=== PATIENT | female | born 1975 | race Two or more races ===

== ENCOUNTER 2016-05-19 18:23 | Inpatient (IN) | payer OTHER ==
[~2016-05-19] VITALS: Ht 172.7 cm; Wt 132.4 kg
[~2016-05-19 18:23] MED LIST: AMOX TR-K CLV1 EAC2 ORAL; CIPROFLOXACIN500 M2 ORAL; HYDROCODON-ACE1 EA13 ORAL
[2016-05-19] MEDS ORDERED: FUROSEMIDE20 M1 ORAL (19:13)
[2016-05-19] MEDS ORDERED: AVIANE1 EACH PO ×2 (19:13→22:56)
[2016-05-19] MEDS ORDERED: DOXYCYCLINE HYC20 M1 PO (19:13)
--- NOTE | 2016-05-19 19:50 | History & Physical ---
History and Physical History & Physicial General Date patient seen: May 19, 2016 Time patient seen: 19:47 Present Illness HPI 41 y/o female with hx of hidratenitis, presents with infected abscesses in her inguinal regions. She has had uncontrolled pain and came to the ER due to this. No fevers/chills, has been on multiple abx in the past doxy without significant improvement. She can exert herself 3x a week with >4 METS activity without any chest pain or dyspnea. No hx of CAD/CHF/DC/CVA/DM/PVD. Non smoker, denies etoh Allergies: Coded Allergies: MARCIN INHIBITORS (Unverified Allergy, Unknown, 12/29/15) Uncoded Allergies: MARCIN-INHIBITORS (Allergy, Unknown, 12/29/15) Patient History History Provided By: Patient Healthcare decision maker Resuscitation status Advanced Directive on File Past Medical/Surgical History Past Medical/Surgical History: (1) Microcytic anemia Family History Family History: Patient reports no known family medical history. Social History Social History: (1) No significant social history ROS Review of Systems Constitutional: Reports: no symptoms Eye: Reports: no symptoms ENT: Reports: no symptoms Respiratory: Reports: no symptoms Cardiovascular: Reports: no symptoms Gastrointestinal: Reports: no symptoms Genitourinary: Reports: pain Musculoskeletal: Reports: no symptoms Skin: Reports: lesions, rash Psychiatric: Reports: no symptoms Neurological: Reports: no symptoms Endocrine: Reports: no symptoms Hematologic/Lymphatic: Reports: no symptoms Physical Exam Physical Exam General Appearance: WD/WN, no apparent distress, alert Lines, tubes and drains: peripheral HEENT: normocephalic, atraumatic, anicteric, mucous membranes moist Neck: non-tender, normal alignment, supple, normal inspection Respiratory/Chest: chest wall non-tender, lungs clear, normal breath sounds, no respiratory distress, no accessory muscle use Cardiovascular/Chest: normal peripheral pulses, normal rate, regular rhythm, no gallop/murmur, no JVD Abdomen: normal bowel sounds, non tender, soft Extremities: normal range of motion, non-tender, normal inspection, no calf tenderness, normal capillary refill Skin Exam: normal pigmentation, warm/dry, no diaphoresis. Inguinal abscesses with ttp Neurologic: alert, oriented x 3, responsive, normal mood/affect Last 24 Hour Vital Signs Date Time Temp Pulse Resp B/P Pulse Ox O2 Delivery O2 Flow Rate FiO2 8/2/16 15:20 98.4 76 16 128/76 98 Room Air 12/29/15 14:06 98.6 82 18 131/70 98 Room Air Laboratory Tests Test 12/29/15 15:25 12/29/15 16:41 White Blood Count 7.7K/UL (4.8-10.8) Red Blood Count 4.41M/UL (4.20-5.40) Hemoglobin 9.7G/DL (12.0-16.0) L Hematocrit 33.5% (37.0-47.0) L Mean Corpuscular Volume 76FL (80-99) L Mean Corpuscular Hemoglobin 22.1PG (27.0-31.0) L Mean Corpuscular Hemoglobin Concent 29.1G/DL (32.0-36.0) L Red Cell Distribution Width 16.9% (11.6-14.8) H Platelet Count 490K/UL (150-450) H Mean Platelet Volume 5.3FL (6.5-10.1) L Neutrophils (%) (Auto) 70.6% (45.0-75.0) Lymphocytes (%) (Auto) 18.9% (20.0-45.0) L Monocytes (%) (Auto) 6.2% (1.0-10.0) Eosinophils (%) (Auto) 3.1% (0.0-3.0) H Basophils (%) (Auto) 1.3% (0.0-2.0) Prothrombin Time 10.2SEC (9.30-11.50) Prothromb Time International Ratio 1.0 (0.9-1.1) Activated Partial Thromboplast Time 30SEC (23-33) Sodium Level 142mEQ/L (135-145) Potassium Level 4.5mEQ/L (3.4-4.9) Chloride Level 104mEQ/L (98-107) Carbon Dioxide Level 27mEQ/L (20-30) Anion Gap 11 (5-15) Blood Urea Nitrogen 14mg/dL (7-23) Creatinine 0.8mg/dL (0.5-0.9) Glucose Level 110mg/dL (74-106) H Calcium Level 9.3mg/dL (8.6-10.2) Urine Color Yellow Urine Appearance Clear Urine pH 5 (4.5-8.0) Urine Specific [place] 1.025 (1.005-1.035) Urine Protein 1+ (NEGATIVE) H Urine Glucose (UA) Negative (NEGATIVE) Urine Ketones Negative (NEGATIVE) Urine Occult Blood 4+ (NEGATIVE) H Urine Nitrite Negative (NEGATIVE) Urine Bilirubin Negative (NEGATIVE) Urine Urobilinogen NormalMG/DL (0.0-1.0) Urine Leukocyte Esterase 1+ (NEGATIVE) H Urine RBC 10-15/HPF (0 - 2) H Urine WBC 2-4/HPF (0 - 2) Urine Squamous Epithelial Cells Few/LPF (NONE/OCC) Urine Bacteria Few/HPF (NONE) Height (Feet): 5 Height (Inches): 8 Weight (Pounds): 280 Medications Current Medications Medications (Trade) Dose Ordered Sig/Sonya Route PRN Reason Start Time Stop Time Status Last Admin Dose Admin Acetaminophen (Tylenol) 650 mg Q4H PRN ORAL Mild Pain (Pain Scale 1-3) 12/29/15 17:00 01/28/16 16:59 UNV Acetaminophen (Tylenol) 650 mg Q4H PRN ORAL fever 12/29/15 17:00 01/28/16 16:59 UNV Al Hydroxide/Mg Hydroxide (Mylanta II) 30 ml Q6H PRN ORAL dyspepsia 12/29/15 17:00 01/28/16 16:59 UNV Bisacodyl (Dulcolax) 10 mg HSPRN PRN RECTAL Constipation 12/29/15 17:00 01/28/16 16:59 UNV Dextrose (Dextrose 50%) STAT PRN IV Hypoglycemia 12/29/15 17:00 01/28/16 16:59 UNV Dextrose/Sodium Chloride (D5ns) 1,000 ml @ 50 mls/hr Q20H IV 12/30/15 00:00 01/29/16 00:00 UNV Diphenhydramine HCl (Benadryl) 25 mg Q6H PRN ORAL Itching/Pruritis 12/29/15 17:00 01/28/16 16:59 UNV Docusate Sodium (Colace) 100 mg EVERY 12 HOURS ORAL 12/29/15 21:00 01/28/16 20:59 UNV Lorazepam (Ativan 2mg/ml 1ml) 0.5 mg Q4H PRN IV For Anxiety 12/29/15 17:00 01/05/16 16:59 UNV Magnesium Hydroxide (Mom) 30 ml HSPRN PRN ORAL Constipation 12/29/15 17:00 01/28/16 16:59 UNV Morphine Sulfate (Morphine Sulfate) 2 mg Q4HR PRN IVP Moderate Pain (Pain Scale 4-6) 12/29/15 17:00 01/05/16 16:59 UNV Morphine Sulfate (Morphine Sulfate) 4 mg Q4HR PRN IVP Severe Pain (Pain Scale 7-10) 12/29/15 17:00 01/05/16 16:59 UNV Ondansetron HCl (Zofran) 4 mg Q6H PRN IVP Nausea & Vomiting 12/29/15 17:00 01/28/16 16:59 UNV Polyethylene Glycol (Miralax) 17 gm HSPRN PRN ORAL Constipation 12/29/15 17:00 01/28/16 16:59 UNV Temazepam (Restoril) 15 mg HSPRN PRN ORAL Insomnia 12/29/15 17:00 01/05/16 16:59 UNV Vancomycin HCl (Vanco rx to dose) 1 ea DAILY PRN MISC Per rx protocol 12/29/15 17:00 01/28/16 16:59 UNV Vancomycin HCl 1 gm/Dextrose 250 ml @ 167 mls/hr ONCE ONCE IVPB 12/29/15 16:45 12/29/15 18:14 12/29/15 17:15 Assessment/Plan Assessment/Plan Problem List: (1) Microcytic anemia Assessment & Plan: ctm; hg 9.4 on previous hospitalization Check iron panel Check CBC (2) Abscess Assessment & Plan: Start IV abx f/u blood cx Pain control Supp care Wound care c/s Surgery, Dr. Ghosh Should the pt need surgical I+D, she would be a low risk for an intermediate risk surgery, per ACC/AHA guidelines, no further cardiopulmonary testing would be needed and there do not appear to be any medical contraindications to proceeding with surgery Time spent on case: 70 minutes with 38 mins dedicated to care coordination and counseling Eloy Peguero M.D. May 19, 2016 19:50
[2016-05-19 20:20] LABS: EOSINOPHILS % (AUTO) 6.5 % (0.0-3.0); LYMPHOCYTES % (AUTO) 27.2 % (20.0-45.0); MEAN CORPUSCULAR HEMOGLOBIN 22.6 PG (27.0-31.0); MEAN CORPUSCULAR HGB CONC 28.9 G/DL (32.0-36.0); MEAN CORPUSCULAR VOLUME 78 FL (80-99); MEAN PLATELET VOLUME 6.6 FL (6.5-10.1); MONOCYTES % (AUTO) 6.9 % (1.0-10.0); NEUTROPHILS % (AUTO) 57.4 % (45.0-75.0); PLATELET COUNT 330 K/UL (150-450); RED BLOOD COUNT 4.91 M/UL (4.20-5.40); RED CELL DISTRIBUTION WIDTH 16.6 % (11.6-14.8); WHITE BLOOD COUNT 6.9 K/UL (4.8-10.8)
[2016-05-19 20:28] LABS: APPEARANCE,URINE SLIGHTLY CLOUDY; KETONES,URINE NEGATIVE (NEGATIVE); PROTEIN,URINE 1+ (NEGATIVE)
[2016-05-19 20:29] LABS: LEUKOCYTE ESTERASE ,URINE NEGATIVE (NEGATIVE); NITRITE,URINE NEGATIVE (NEGATIVE); UROBILINOGEN,URINE NORMAL MG/DL (0.0-1.0)
[2016-05-19 20:33] LABS: BACTERIA,URINE FEW /HPF; CALCIUM OXALATE CRYSTALS,UR FEW /LPF; SQUAMOUS EPITHELIAL CELL,UR MODERATE /LPF (NONE/OCC); WBC,URINE 0-2 /HPF (0 - 2)
[2016-05-19 20:44] LABS: ALANINE AMINOTRANSFERASE 20 U/L (3-33); ALBUMIN/GLOBULIN RATIO 0.7 (1.0-2.7); ANION GAP 14 (5-15); ASPARTATE AMINO TRANSFERASE 15 U/L (5-40); CALCIUM 9.6 mg/dL (8.6-10.2); CARBON DIOXIDE 26 mEQ/L (20-30); CHLORIDE 98 mEQ/L (98-107); CREATININE 0.9 mg/dL (0.5-0.9); GLOMERULAR FILTRATION RATE > 60 mL/min (>60); HEMOLYSIS 7; POTASSIUM 4.3 mEQ/L (3.4-4.9); SODIUM 138 mEQ/L (135-145); TOTAL PROTEIN 8.6 g/dL (6.6-8.7)
[2016-05-19 20:50] LABS: PROTHROMBIN TIME 9.8 SEC (9.30-11.50)
[2016-05-19 21:01] VITALS: BP 121/70
[2016-05-19] MEDS ORDERED: Zosyn 3.375gm inj ONE (21:06)
[2016-05-19] MEDS: D5 1/2NS 1,000 ML IV SCH (21:08)
--- NOTE | 2016-05-19 21:25 | Emergency Room Report ---
History of Present Illness General Chief Complaint: Skin Rash/Abscess Source: Patient Present Illness HPI 41-year-old female presents to ED for evaluation. Patient is here to have surgery for hidradenitis to her inguinal area. Patient has history of hidradenitis in the past in other areas with prior operations. Patient denies any pain. Denies any fevers or chills. No aggravating or relieving factors. Denies any other associated symptoms Allergies: Coded Allergies: Dust (Verified Allergy, Mild, 12/30/15) SHELLFISH DERIVED (Unverified Allergy, Mild, 12/30/15) STRAWBERRY (Verified Allergy, Mild, 12/30/15) MARCIN INHIBITORS (Unverified Allergy, Unknown, 12/29/15) Uncoded Allergies: muñoz (Allergy, Mild, 12/30/15) shellfish (Allergy, Mild, 12/30/15) Patient History Past Medical History: none Past Surgical History: none Pertinent Family History: none Social History: Denies: alcohol use, drug use, smoking Last Menstrual Period: Currently on her period Now: No : 1 Para: 1 Immunizations: UTD Reviewed Nursing Documentation: PMH: Agreed, PSxH: Agreed Nursing Documentation-PMH Past Medical History: No Stated History Hx Cardiac Problems: No - HS Review of Systems All Other Systems: negative except mentioned in HPI Physical Exam Vital Signs Date Time Temp Pulse Resp B/P Pulse Ox O2 Delivery O2 Flow Rate FiO2 05/19/16 19:01 98.1 74 16 125/73 99 Room Air Sp02 EP Interpretation: reviewed, normal General Appearance: no apparent distress, alert, GCS 15, non-toxic, obese Head: normocephalic Eyes: bilateral eye PERRL, bilateral eye normal inspection ENT: normal ENT inspection Neck: normal inspection Respiratory: chest non-tender, lungs clear, normal breath sounds, speaking full sentences Cardiovascular #1: regular rate, rhythm, no edema Gastrointestinal: normal bowel sounds, non tender, soft, non-distended, no guarding, no rebound Rectal: deferred Genitourinary: no CVA tenderness Musculoskeletal: normal inspection Neurologic: alert, oriented x3, responsive, motor strength/tone normal, sensory intact, speech normal Psychiatric: normal inspection Skin: other - hidradenitis inguinal area Lymphatic: no adenopathy Medical Decision Making Diagnostic Impression: Primary Impression: Hidradenitis ER Course Hospital Course 41-year-old female presents to ED for preop evaluation. Scheduled to have surgery hidradenitis tomorrow Clinical course Patient placed on stretcher. After initial history and physical I ordered labs , CXR, EKG labs reviewed - no leukocytosis, Hb/Hct stable, no electrolyte abnormalities. antibiotics given. Case discussed with Dr Isidro/Augie and he agreed to accept the patient to his service for further care and support Diagnosis - hidradenitis Patient admitted to floor in serious condition Labs Test 05/19/16 19:40 White Blood Count 6.9 K/UL (4.8-10.8) Red Blood Count 4.91 M/UL (4.20-5.40) Hemoglobin 11.1 G/DL (12.0-16.0) Hematocrit 38.3 % (37.0-47.0) Mean Corpuscular Volume 78 FL (80-99) Mean Corpuscular Hemoglobin 22.6 PG (27.0-31.0) Mean Corpuscular Hemoglobin Concent 28.9 G/DL (32.0-36.0) Red Cell Distribution Width 16.6 % (11.6-14.8) Platelet Count 330 K/UL (150-450) Mean Platelet Volume 6.6 FL (6.5-10.1) Neutrophils (%) (Auto) 57.4 % (45.0-75.0) Lymphocytes (%) (Auto) 27.2 % (20.0-45.0) Monocytes (%) (Auto) 6.9 % (1.0-10.0) Eosinophils (%) (Auto) 6.5 % (0.0-3.0) Basophils (%) (Auto) 2.0 % (0.0-2.0) Prothrombin Time 9.8 SEC (9.30-11.50) Prothromb Time International Ratio 1.0 (0.9-1.1) Activated Partial Thromboplast Time 29 SEC (23-33) Urine Color Yellow Urine Appearance Slightly cloudy Urine pH 5.0 (4.5-8.0) Urine Specific [place] 1.025 (1.005-1.035) Urine Protein 1+ (NEGATIVE) Urine Glucose (UA) Negative (NEGATIVE) Urine Ketones Negative (NEGATIVE) Urine Occult Blood 4+ (NEGATIVE) Urine Nitrite Negative (NEGATIVE) Urine Bilirubin Negative (NEGATIVE) Urine Urobilinogen Normal MG/DL (0.0-1.0) Urine Leukocyte Esterase Negative (NEGATIVE) Urine RBC 10-15 /HPF (0 - 2) Urine WBC 0-2 /HPF (0 - 2) Urine Squamous Epithelial Cells Moderate /LPF (NONE/OCC) Urine Calcium Oxalate Crystals Few /LPF (NONE) Urine Bacteria Few /HPF (NONE) Sodium Level 138 mEQ/L (135-145) Potassium Level 4.3 mEQ/L (3.4-4.9) Chloride Level 98 mEQ/L (98-107) Carbon Dioxide Level 26 mEQ/L (20-30) Anion Gap 14 (5-15) Blood Urea Nitrogen 15 mg/dL (7-23) Creatinine 0.9 mg/dL (0.5-0.9) Estimat Glomerular Filtration Rate > 60 mL/min (>60) Glucose Level 103 mg/dL (74-106) Calcium Level 9.6 mg/dL (8.6-10.2) Total Bilirubin < 0.2 mg/dL (0.0-1.2) Aspartate Amino Transf (AST/SGOT) 15 U/L (5-40) Alanine Aminotransferase (ALT/SGPT) 20 U/L (3-33) Alkaline Phosphatase 111 U/L (35-104) Total Protein 8.6 g/dL (6.6-8.7) Albumin 3.8 g/dL (3.5-5.2) Globulin 4.8 g/dL Albumin/Globulin Ratio 0.7 (1.0-2.7) EKG Diagnostic Results Rate: normal Rhythm: NSR ST Segments: no acute changes ASA given to the pt in ED: No Rhythm Strip Diag. Results EP Interpretation: yes Rhythm: NSR, no PVC's, no ectopy Chest X-Ray Diagnostic Results EP Interpretation: Yes Findings: no consolidation, no effusion, no pneumothorax, no acute cardiopulmonary disease Number of Views: 1 Last Vital Signs Date Time Temp Pulse Resp B/P Pulse Ox O2 Delivery O2 Flow Rate FiO2 05/19/16 21:01 73 16 121/70 99 Room Air 05/19/16 19:01 98.1 Status: improved Disposition: ADMITTED INPATIENT Condition: Serious Referrals: ONEIDA SHANKAR (PCP) GABRIELLE COFFMAN M.D. May 19, 2016 21:25
[2016-05-19] MEDS ORDERED: FUROSEMIDE40 MG ORAL (22:56)
[2016-05-19] MEDS ORDERED: AMOX TR-K CLV1 EAC1 ORAL (22:56)
[2016-05-19 23:33] VITALS: BP 118/73
[2016-05-20] VITALS (15 sets, daily range): BP systolic 95–142; BP diastolic 53–83
[2016-05-20] MEDS ORDERED: ceFAZolin 1gm/50ml Premix 50 ML IVPB SCH
[2016-05-20] MEDS: CEFAZOLIN IVP SCH ×4 (05:45→14:00)
[2016-05-20] MEDS: D5W IVP SCH ×4 (05:45→14:00)
[2016-05-20] MEDS ORDERED: Bacitracin 50000 Units Vial ONE (08:36)
[2016-05-20] MEDS ORDERED: Lidocaine 1% 10mg/ml/Epi 0.005mg/ml 30ml vial INJ ONE (08:36)
[2016-05-20] MEDS ORDERED: Sodium Bicarbonate 8.4% 50ml Inj IV ONE (08:45)
[2016-05-20] MEDS ORDERED: Lidocaine 1% Plain 30 ml INJ ONE (08:45)
[2016-05-20] MEDS ORDERED: Heparin 2000 units/Ns 1000ml INJ ONE (08:45)
[2016-05-20] MEDS ORDERED: Propofol 10mg/ml 20ml IV ONE (09:42)
[2016-05-20] MEDS: D5 1/2NS 1,000 ML IV SCH ×2 (09:59→22:09)
--- NOTE | 2016-05-20 10:17 | Pre-Procedure Note/Attestation ---
Pre-Procedure Note/Attestation Complete Prior to Procedure Planned Procedure: bilateral Procedure Narrative: Debridement of bilateral groin,thighs,lower abdomen, and vulva Attestation I attest that I discussed the nature of the procedure; its benefits; risks and complications; and alternatives (and the risks and benefits of such alternatives ), prior to the procedure, with the patient (or the patient's legal circulation sales representative). I attest that, if there was a reasonable possibility of needing a blood transfusion, the patient (or the patient's legal circulation sales representative) was given the [facility] standardized written summary, pursuant to the [place] Blood Safety Act ([place] Health and Safety Code # 1645, as amended). I attest that I re-evaluated the patient just prior to the surgery and that there has been no change in the patient's H&P, except as documented below: ONEIDA SHANKAR May 20, 2016 10:17
--- NOTE | 2016-05-20 10:18 | Operative Note - PDOC ---
Operative Note Operative Note Pre-op Diagnosis: Groin infection and vulvar infection Procedure: Debridement of wounds and flap elevation Post-op Diagnosis: same as pre-op Anesthesia: general Specimen: none Complications: none Condition: stable Estimated Blood Loss: minimal Drains: ONEIDA CATHERINE May 20, 2016 10:18
--- NOTE | 2016-05-20 10:20 | General Progress Note ---
Assessment/Plan Problem List: (1) Abscess ICD Codes: L02.91 - Cutaneous abscess, unspecified SNOMED: 230799719 (2) Inguinal abscess ICD Codes: L02.214 - Cutaneous abscess of groin SNOMED: 18746851 (3) Hidradenitis ICD Codes: L73.2 - Hidradenitis suppurativa SNOMED: 99039629 (4) Microcytic anemia ICD Codes: D50.9 - Iron deficiency anemia, unspecified SNOMED: 323564067 (5) Constipation ICD Codes: K59.00 - Constipation, unspecified SNOMED: 89100395 Status: progressing Assessment/Plan IV abx f/u blood cx Pain control Supp care Wound care c/s Surgery, Dr. Ghosh, pt to undergo Debridement of bilateral groin,thighs, lower abdomen, and vulva today Time spent on case: 45 minutes with 28 mins dedicated to care coordination and counseling Subjective Date patient seen: May 20, 2016 Time patient seen: 10:19 Allergies: Coded Allergies: Dust (Verified Allergy, Mild, 12/30/15) SHELLFISH DERIVED (Unverified Allergy, Mild, 12/30/15) STRAWBERRY (Verified Allergy, Mild, 12/30/15) MARCIN INHIBITORS (Unverified Allergy, Unknown, 12/29/15) Uncoded Allergies: muñoz (Allergy, Mild, 12/30/15) shellfish (Allergy, Mild, 12/30/15) Subjective no acute events o/n Objective Last 24 Hour Vital Signs Date Time Temp Pulse Resp B/P Pulse Ox O2 Delivery O2 Flow Rate FiO2 05/20/16 09:00 97.7 73 20 111/60 100 Room Air 05/20/16 04:00 98.2 73 21 125/67 100 Room Air 05/20/16 00:00 97.7 84 20 142/80 94 Room Air 05/19/16 23:35 98.3 76 12 118/73 100 Room Air 05/19/16 23:33 98.3 76 12 118/73 100 Room Air 05/19/16 21:01 73 16 121/70 99 Room Air 05/19/16 19:01 98.1 74 16 125/73 99 Room Air Intake and Output 05/19/16 05/20/16 19:00 07:00 Intake Total 675 ml Output Total 1 ml Balance 674 ml Intake Oral 0 ml IV Total 675 ml Output Urine Total 1 ml # Voids 1 # Bowel Movements 1 Laboratory Tests 05/19/16 19:40: White Blood Count 6.9, Red Blood Count 4.91, Hemoglobin 11.1L, Hematocrit 38.3, Mean Corpuscular Volume 78L, Mean Corpuscular Hemoglobin 22.6L, Mean Corpuscular Hemoglobin Concent 28.9L, Red Cell Distribution Width 16.6H, Platelet Count 330, Mean Platelet Volume 6.6, Neutrophils (%) (Auto) 57.4, Lymphocytes (%) (Auto) 27.2, Monocytes (%) (Auto) 6.9, Eosinophils (%) (Auto) 6.5H, Basophils (%) (Auto) 2.0, Prothrombin Time 9.8, Prothromb Time International Ratio 1.0, Activated Partial Thromboplast Time 29, Urine Color Yellow, Urine Appearance Slightly cloudy, Urine pH 5.0, Urine Specific [place] 1.025, Urine Protein 1+H, Urine Glucose (UA) Negative, Urine Ketones Negative, Urine Occult Blood 4+H, Urine Nitrite Negative, Urine Bilirubin Negative, Urine Urobilinogen Normal, Urine Leukocyte Esterase Negative, Urine RBC 10-15H, Urine WBC 0-2, Urine Squamous Epithelial Cells ModerateH, Urine Calcium Oxalate Crystals Few, Urine Bacteria Few, Sodium Level 138, Potassium Level 4.3, Chloride Level 98, Carbon Dioxide Level 26, Anion Gap 14, Blood Urea Nitrogen 15 , Creatinine 0.9, Estimat Glomerular Filtration Rate > 60, Glucose Level 103, Calcium Level 9.6, Total Bilirubin < 0.2, Aspartate Amino Transf (AST/SGOT) 15, Alanine Aminotransferase (ALT/SGPT) 20, Alkaline Phosphatase 111H, Total Protein 8.6, Albumin 3.8, Globulin 4.8, Albumin/Globulin Ratio 0.7L Height (Feet): 5 Height (Inches): 8.00 Weight (Pounds): 292 General Appearance: WD/WN, no apparent distress, morbidly obese, other EENT: PERRL/EOMI, normal ENT inspection Neck: non-tender, normal alignment Cardiovascular: normal peripheral pulses, normal rate Respiratory/Chest: chest wall non-tender, lungs clear Abdomen: normal bowel sounds, non tender Edema: no edema noted Arm (L), no edema noted Arm (R), no edema noted Leg (L), no edema noted Leg (R), no edema noted Pedal (L), no edema noted Pedal (R), no edema noted Generalized Neurologic: piper helper II-XII grossly normal, no motor/sensory deficits Skin: other - b/l inguinal abscesses with ttp Eloy Peguero M.D. May 20, 2016 10:20
[2016-05-20] MEDS ORDERED: Rate Change PCA 1 Each MISC PRN (10:30)
[2016-05-20] MEDS ORDERED: LR 1000ml ONE (11:02)
[2016-05-20] MEDS ORDERED: Sterile Water Irrig 1000ml IRRIG ONE (11:02)
[2016-05-20] MEDS ORDERED: Neostigmine 1mg/ml 10ml Inj ONE (11:02)
[2016-05-20] MEDS ORDERED: Zemuron 50mg/5ml Inj IV ONE (11:02)
[2016-05-20] MEDS ORDERED: Glycopyrrolate 0.2mg/ml 1ml Vial ONE (11:02)
[2016-05-20] MEDS ORDERED: NS Irrig 1000ml ONE (11:02)
[2016-05-20] MEDS ORDERED: Midazolam 2mg/2ml Inj ONE ×2 (11:02)
[2016-05-20] MEDS ORDERED: Ketorolac 30mg Inj ONE (11:02)
[2016-05-20] MEDS ORDERED: fentaNYL 250mcg/5ml ONE (11:02)
--- NOTE | 2016-05-20 11:47 | Diagnostic Imaging Report ---
Indications: Needs long-term IV access Technique: Ultrasound confirms patent compressible left basilic vein. Total sterile technique, including sterile probe cover and sterile gel, hat, mask,, sterile gown, large sterile drape, and preparation with 2% chlorhexidine utilized. Local anesthesia with 1% lidocaine. Under real-time ultrasound guidance, puncture basilic vein using 21-gauge needle, documented and archived, passage 0.018 guidewire under direct fluoroscopy, which was used to determine appropriate catheter length, exchange for 5 Spanish peel-away sheath. 5 Spanish Bard dual-lumen power PICC cut to 44 cm. It was inserted through the peel-away sheath. Peel-away sheath and guidewire removed. Catheter fixed to the skin. Both catheter ports aspirated and flushed. Patient tolerated procedure well, without immediate complication. Digital radiograph documents satisfactory catheter tip position, at the cavoatrial junction. Total fluoroscopy time 0.4 minutes. Total dose area product 15 dGycm2 Impression: Successful placement of left PICC under sonographic and fluoroscopic guidance, as described above.
--- NOTE | 2016-05-20 11:48 | Anethesia Preoperative Eval ---
Anesthesia Pre-op PMH/ROS General Date of Evaluation: May 20, 2016 Time of Evaluation: 10:50 Anesthesiologist: Naveen ASA Score: ASA 3 Mallampati Score Class I : Soft palate, uvula, fauces, pillars visible Class II: Soft palate, uvula, fauces visible Class III: Soft palate, base of uvula visible Class IV: Only hard plate visible Mallampati Classification: Class III Surgeon: Augie Diagnosis: Bilateral groin hydradenitis Surgical Procedure: Excision of bilateral groin hydradenitis Anesthesia History: none Family History: no anesthesia problems Allergies: Coded Allergies: Dust (Verified Allergy, Mild, 12/30/15) SHELLFISH DERIVED (Unverified Allergy, Mild, 12/30/15) STRAWBERRY (Verified Allergy, Mild, 12/30/15) MARCIN INHIBITORS (Unverified Allergy, Unknown, 12/29/15) Uncoded Allergies: muñoz (Allergy, Mild, 12/30/15) shellfish (Allergy, Mild, 12/30/15) Medications: see eMAR Past Medical History Cardiovascular: Reports: HTN, Denies: CAD, NH, arrhythmia, other, valve dz Pulmonary: Denies: COPD, OSMAR, asthma, other Gastrointestinal/Genitourinary: Reports: GERD Neurologic/Psychiatric: Reports: depression/anxiety, Denies: CVA, TIA, dementia, other Endocrine: Denies: DM, hypothyroidism, other, steroids HEENT: Denies: GULKANA (L), GULKANA (R), cataract (L), cataract (R), glaucoma, other Hematology/Immune: Reports: anemia, Denies: DVT, bleeding disorder, other Musculoskeletal/Integumentary: Reports: other - Recurrent hydradenitis Other: obesity PMH Narrative: As above PSxH Narrative: Multiple Sx for hydradenitis treatment Anesthesia Pre-op Phys. Exam Physician Exam Last Vital Signs Date Time Temp Pulse Resp B/P Pulse Ox O2 Delivery O2 Flow Rate FiO2 05/20/16 09:00 97.7 73 20 111/60 100 Room Air Constitutional: NAD Neurologic: CN 2-12 intact Cardiovascular: RRR, no M/R/G Respiratory: CTA Gastrointestinal: other - obesity Airway Exam Mallampati Score: Class III MO: full Neck: flexible Teeth: missing Dentures: no lower, no upper Anesthesia Pre-op A/P Labs Hematology Test 05/19/16 19:40 White Blood Count 6.9 K/UL (4.8-10.8) Red Blood Count 4.91 M/UL (4.20-5.40) Hemoglobin 11.1 G/DL (12.0-16.0) L Hematocrit 38.3 % (37.0-47.0) Mean Corpuscular Volume 78 FL (80-99) L Mean Corpuscular Hemoglobin 22.6 PG (27.0-31.0) L Mean Corpuscular Hemoglobin Concent 28.9 G/DL (32.0-36.0) L Red Cell Distribution Width 16.6 % (11.6-14.8) H Platelet Count 330 K/UL (150-450) Mean Platelet Volume 6.6 FL (6.5-10.1) Neutrophils (%) (Auto) 57.4 % (45.0-75.0) Lymphocytes (%) (Auto) 27.2 % (20.0-45.0) Monocytes (%) (Auto) 6.9 % (1.0-10.0) Eosinophils (%) (Auto) 6.5 % (0.0-3.0) H Basophils (%) (Auto) 2.0 % (0.0-2.0) Coagulation Test 05/19/16 19:40 Prothrombin Time 9.8 SEC (9.30-11.50) Prothromb Time International Ratio 1.0 (0.9-1.1) Activated Partial Thromboplast Time 29 SEC (23-33) Chemistry Test 05/19/16 19:40 Sodium Level 138 mEQ/L (135-145) Potassium Level 4.3 mEQ/L (3.4-4.9) Chloride Level 98 mEQ/L (98-107) Carbon Dioxide Level 26 mEQ/L (20-30) Anion Gap 14 (5-15) Blood Urea Nitrogen 15 mg/dL (7-23) Creatinine 0.9 mg/dL (0.5-0.9) Estimat Glomerular Filtration Rate > 60 mL/min (>60) Glucose Level 103 mg/dL (74-106) Calcium Level 9.6 mg/dL (8.6-10.2) Total Bilirubin < 0.2 mg/dL (0.0-1.2) Aspartate Amino Transf (AST/SGOT) 15 U/L (5-40) Alanine Aminotransferase (ALT/SGPT) 20 U/L (3-33) Alkaline Phosphatase 111 U/L (35-104) H Total Protein 8.6 g/dL (6.6-8.7) Albumin 3.8 g/dL (3.5-5.2) Globulin 4.8 g/dL Albumin/Globulin Ratio 0.7 (1.0-2.7) L Studies Pre-op Studies: EKG - SR Risk Assessment & Plan Assessment: ASA 3 Plan: GA with ETT Status Change Before Surgery: No Pre-Antibiotics Drug: Ancef 1 gr. Given Within 1 Hr of Incision: Yes Time Given: 11:28 ALVIN DAS M.D. May 20, 2016 11:48
[2016-05-20] MEDS ORDERED: LR 1000ml 1,000 ML IVLG SCH (11:49)
[2016-05-20] MEDS ORDERED: fentaNYL 100 mcg/2 mL IV PRN (12:00)
[2016-05-20] MEDS ORDERED: Hydromorphone 0.5mg/0.5ml inj IVP PRN (12:00)
[2016-05-20] MEDS ORDERED: Midazolam 2mg/2ml Inj IVP PRN (12:00)
[2016-05-20] MEDS ORDERED: Metoclopramide 10mg/2ml Inj IVP PRN (12:00)
[2016-05-20] MEDS ORDERED: Meperidine 25mg/ml Inj IV PRN (12:00)
[2016-05-20] MEDS ORDERED: Ketorolac 30mg Inj IV PRN (12:00)
[2016-05-20] MEDS ORDERED: DiphenhydrAMINE 50mg/ml Inj IVP PRN (12:00)
[2016-05-20] MEDS ORDERED: Bacitracin Oint 15gm Tube TOPIC ONE (12:30)
--- NOTE | 2016-05-20 13:03 | Immediate Post-Op Evaluation ---
Immediate Post-Op Evalulation Immediate Post-Op Evalulation Procedure: Excision of bilateral groin hydradenitis Date of Evaluation: May 20, 2016 Time of Evaluation: 13:01 IV Fluids: 800 Blood Products: none Estimated Blood Loss: 50 Urinary Output: 300 Blood Pressure Systolic: 132 Blood Pressure Diastolic: 75 Pulse Rate: 68 Respiratory Rate: 20 O2 Sat by Pulse Oximetry: 99 Temperature (Fahrenheit): 97.2 Pain Score (1-10): 1 Nausea: No Vomiting: No Complications none Patient Status: reacts, patent, extubated Hydration Status: adequate ALVIN DAS M.D. May 20, 2016 13:03
[2016-05-20] MEDS: PCA HYDROmorphone 1mg/ml 30 ML IV PRN (13:49)
[2016-05-20] MEDS: PCA shift volume MISC SCH ×2 (15:13→23:00)
--- NOTE | 2016-05-20 15:20 | 48 Hour Post Anesthesia Eval ---
Post Anesthesia Evaluation Procedure: Excision of bilateral groin hydradenitis Date of Evaluation: May 20, 2016 Time of Evaluation: 13:18 Blood Pressure Systolic: 120 0: 64 Pulse Rate: 60 Respiratory Rate: 16 Temperature (Fahrenheit): 98 O2 Sat by Pulse Oximetry: 100 Airway: patent Nausea: No Vomiting: No Pain Intensity: 3 Hydration Status: adequate Cardiopulmonary Status: Stable Mental Status/LOC: patient returned to baseline Follow-up Care/Observations: 0 Post-Anesthesia Complications: 0 Follow-up care needed: N/A Aristeo Reed MD May 20, 2016 15:20
--- NOTE | 2016-05-20 15:59 | Cardiology Report ---
APPROVED REPORT EKG Measurement Heart [id number] Normal sinus rhythm Normal ECG
--- NOTE | 2016-05-20 17:08 | Consultation ---
DATE OF CONSULTATION: 05/20/2016 ADMITTING PHYSICIAN: Rogelio Nicole M.D. HISTORY OF PRESENT ILLNESS: This is a 41-year-old patient admitted to the emergency room last night with infected abscesses in her inguinal regions who has had uncontrolled pain and presented to the emergency room for this. She has had previous surgery by me for excision of infected masses on her lower extremities and she presents now with new areas that are causing her significant pain and discomfort. She was started on IV antibiotics and I am seeing her today for evaluation for surgical debridement and reconstruction. PAST MEDICAL HISTORY: Significant for hidradenitis suppurativa. PAST SURGICAL HISTORY: Significant for previous excision and reconstruction of these infected abscesses in her lower extremity and trunk. MEDICATIONS: Include antibiotics. ALLERGIES: MARCIN inhibitors and shellfish. PHYSICAL EXAMINATION: GENERAL: The patient is alert, alert oriented x3. HEART: Regular rate and rhythm. ABDOMEN: Soft, nontender, and nondistended. Lower abdomen reveals an infected abscess just over the mons as well as multiple areas of abscesses in the upper thigh and verrucous type lesions along both vulvae. ASSESSMENT AND PLAN: This is a 41-year-old female with multiple perineal and inguinal abscesses. She will require debridement and staged reconstruction of these areas. Given the fact that they are infected, this will not be one stage operation and will require first stage of excision and elevation of the reconstructive flaps with delayed closure of these wounds in three to five days. Jacob Ghosh M.D. DR: Tevin JOB#: [id number] CC: MORENA
--- NOTE | 2016-05-20 20:28 | Operative Note - Dictated ---
DATE OF OPERATION: 05/20/2016 PREOPERATIVE DIAGNOSES: 1. Bilateral upper thigh infected masses. 2. Infected mons mass. 3. Infected bilateral vulvar masses. POSTOPERATIVE DIAGNOSES: 1. Bilateral upper thigh infected masses. 2. Infected mons mass. 3. Infected bilateral vulvar masses. PROCEDURE: 1. Radical excision of left thigh mass. 2. Radical excision of right thigh mass. 3. Radical excision of mons mass. 4. Radical excision of vulvar mass. 5. Elevation of a superior fasciocutaneous thigh flap for closure of left thigh wound. 6. Elevation of an inferior fasciocutaneous thigh flap for closure of left thigh wound. 7. Elevation of a superior fasciocutaneous thigh flap for closure of right thigh wound. 8. Elevation of an inferior fasciocutaneous thigh flap for closure of right thigh wound. SURGEON: Jacob Ghosh M.D. BLOW OFF WORKER: Minda Alonzo M.D. ANESTHESIA: General. COMPLICATIONS: None. DRAINS: None. SPECIMEN: Included a total of six different specimens, one from each thigh, one from the mass, and several from the vulvar region. DISPOSITION: Stable to the recovery room. INDICATIONS FOR SURGERY: This is a 41-year-old female who presented to the emergency room with infected masses in the perineal and groin and thigh regions. She was started on IV antibiotics and upon evaluation by me, I felt that she was an appropriate candidate for radical excision of these infected areas with stage reconstruction. Given the fact these were infected tissues, I felt that it was not appropriate to perform immediate reconstruction at this time, but she would require stage approach for completion of her reconstruction. She understood the risks and benefits of surgery and agreed to proceed. DETAILS OF THE OPERATION: The patient was brought to the operating room and laid in the lithotomy position on the operating room table. Her lower abdomen, perineum, and bilateral upper thigh regions were prepped and draped in the sterile and usual fashion. We first began by delineating the areas of the infected masses in the surgical field by performing elliptical type of incisional designs around the bilateral thigh masses. In addition, an elliptical type design was also designed around the infected mons mass as well. Once this was done, we first addressed the left thigh mass by using a #10 blade to perform the skin incision and it was radically excised using electrocautery all the way down to the level of the subcutaneous fat. We then did the same approach to the contralateral right thigh mass, which was approached by using a #10 blade to make a skin incision and dissection was carried down using electrocautery all the way down to the subcutaneous fat. Once this was done, it was noted that the wound would not amenable to primary closure. As such, apposing flaps had to be elevated on both sides to allow for a tension-free repair. This was first done on the right side where a superior fasciocutaneous flap based off of branches of the deep inferior epigastric artery was elevated at the fasciocutaneous level with undermining performed at the fascia level and proximal distal incision was performed to fully mobilize the flap. A corresponding inferior fasciocutaneous thigh flap was elevated based off of perforators of the superficial femoral artery with undermining performed at the fasciocutaneous level with proximal and distal incisions also made to fully mobilize the flap. We then turned our attention and performed the exact same flap elevation on the contralateral left thigh where a superior fasciocutaneous flap based off of the deep inferior epigastric artery was elevated with proximal and distal incisions made to fully mobilize the flap and a corresponding inferior medial thigh flap based off of perforators of the superficial femoral artery was elevated at the fasciocutaneous level with undermining and proximal and distal incisions made to fully allow for advancement of the flap. At this time, we then turned our attention to the mons infected mass, which was excised at the skin level using a #10 blade to make a skin incision and then dissection was carried down all the way down to the level of the fascia to radically excise the mass. For this particular wound, we then irrigated this wound and the other thigh wound and performed hemostasis and they were packed temporarily. We then turned our attention to the vulvar tissue. The patient had growths along the right and left vulva. These were all delineated using a marking pen and once this was done, a #10 blade was used to first excise the right vulvar tissue and in a similar fashion the left vulvar tissue was also excised all the way down to the healthy wound bed. Once this was done, the wounds were then copiously irrigated with pulse lavage and hemostasis was achieved. At the end, we partially closed the thigh wounds and the vulvar wounds with temporary dalton. The patient we brought back to the operating room in three to five days following intravenous antibiotics and with dressing changes to perform definitive flap inset and closure of the open wounds. The patient tolerated the procedure well and there was no complications. Jacob Ghosh M.D. DR: YUMIKO JOB#: [id number] CC:
[2016-05-20] MEDS ORDERED: Heparin 5000 units/ml inj SUBQ SCH (21:00)
[2016-05-20] MEDS ORDERED: Zolpidem 5mg tab ORAL PRN (21:00)
[2016-05-21 00:41] VITALS: BP 100/55
[2016-05-21 04:00] VITALS: BP 111/68
[2016-05-21] MEDS: PCA shift volume MISC SCH ×3 (07:22→23:10)
[2016-05-21 08:00] VITALS: BP 132/64
[2016-05-21] MEDS: Diphenydramine inj IV PRN ×2 (08:06→14:29)
--- NOTE | 2016-05-21 09:13 | General Progress Note ---
Progress Note Progress Note Pt seen and examined. POD# 1 and doing well. Pain is well controlled. Dressings intact. Will change dressings in AM and continue IV abx and pain meds. ONEIDA Carter MD May 21, 2016 09:13
--- NOTE | 2016-05-21 10:24 | Diagnostic Imaging Report ---
Indication: Cough Technique: One view of the chest Comparison: 01/23/2016 Findings: Previously demonstrated PICC is no longer evident. Patient is rotated to the right. The lungs and pleural spaces are clear Impression: No acute process
--- NOTE | 2016-05-21 11:11 | General Progress Note ---
Assessment/Plan Problem List: (1) Abscess ICD Codes: L02.91 - Cutaneous abscess, unspecified SNOMED: 363861734 (2) Inguinal abscess ICD Codes: L02.214 - Cutaneous abscess of groin SNOMED: 77975166 (3) Hidradenitis ICD Codes: L73.2 - Hidradenitis suppurativa SNOMED: 21655724 (4) Microcytic anemia ICD Codes: D50.9 - Iron deficiency anemia, unspecified SNOMED: 882418859 (5) Constipation ICD Codes: K59.00 - Constipation, unspecified SNOMED: 99591586 Assessment/Plan IV abx f/u blood cx Pain control Supp care Wound care s/p Debridement of bilateral groin,thighs,lower abdomen, and vulva POD 1 Time spent on case: 45 minutes with 28 mins dedicated to care coordination and counseling Subjective Date patient seen: May 21, 2016 Time patient seen: 11:09 Allergies: Coded Allergies: Dust (Verified Allergy, Mild, 12/30/15) SHELLFISH DERIVED (Unverified Allergy, Mild, 12/30/15) STRAWBERRY (Verified Allergy, Mild, 12/30/15) MARCIN INHIBITORS (Unverified Allergy, Unknown, 12/29/15) Uncoded Allergies: muñoz (Allergy, Mild, 12/30/15) shellfish (Allergy, Mild, 12/30/15) Subjective no acute events o/n Objective Last 24 Hour Vital Signs Date Time Temp Pulse Resp B/P Pulse Ox O2 Delivery O2 Flow Rate FiO2 05/21/16 08:00 97.3 77 18 132/64 97 Room Air 05/21/16 08:00 18 05/21/16 04:00 99.5 82 19 111/68 95 Room Air 05/21/16 04:00 16 05/21/16 00:41 98.2 75 20 100/55 90 Room Air 05/20/16 23:39 16 05/20/16 20:00 98.1 72 20 95/57 97 Nasal Cannula 3.0 05/20/16 19:39 16 05/20/16 15:39 16 05/20/16 15:30 97.3 60 20 109/53 98 Nasal Cannula 3.0 05/20/16 15:20 16 05/20/16 15:20 60 16 100 05/20/16 15:09 16 05/20/16 14:39 16 05/20/16 14:30 97.2 59 20 106/66 100 Nasal Cannula 3.0 05/20/16 14:24 16 05/20/16 14:19 99.4 05/20/16 14:15 98.0 60 18 122/64 100 Nasal Cannula 3.0 05/20/16 14:09 16 05/20/16 14:00 58 16 120/66 100 Nasal Cannula 3.0 05/20/16 13:54 19 05/20/16 13:52 99.4 05/20/16 13:49 19 05/20/16 13:45 56 16 118/64 100 Nasal Cannula 3.0 05/20/16 13:30 60 19 132/75 100 Nasal Cannula 3.0 05/20/16 13:20 60 19 140/78 100 Nasal Cannula 3.0 05/20/16 13:10 64 18 135/83 100 Simple Mask 6.0 05/20/16 13:03 60 16 141/76 100 Simple Mask 6.0 05/20/16 13:03 68 20 99 05/20/16 12:58 65 15 134/72 100 Simple Mask 6.0 05/20/16 12:53 97.0 73 18 137/79 100 Simple Mask 6.0 Intake and Output 05/20/16 05/21/16 19:00 07:00 Intake Total 1935 ml 1000 ml Output Total 675 ml 345 ml Balance 1260 ml 655 ml Intake Oral 360 ml IV Total 1575 ml 1000 ml Output Urine Total 625 ml 345 ml Estimated Blood Loss 50 ml # Bowel Movements 1 Height (Feet): 5 Height (Inches): 8.00 Weight (Pounds): 292 General Appearance: WD/WN, no apparent distress EENT: PERRL/EOMI, normal ENT inspection Neck: non-tender, normal alignment Cardiovascular: normal peripheral pulses, normal rate Respiratory/Chest: chest wall non-tender, lungs clear Abdomen: normal bowel sounds, non tender Extremities: normal range of motion Edema: no edema noted Arm (L), no edema noted Arm (R), no edema noted Leg (L), no edema noted Leg (R), no edema noted Pedal (L), no edema noted Pedal (R), no edema noted 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 May 21, 2016 11:11
[2016-05-21] MEDS ORDERED: Milk of Magnesia 30ml Ud ORAL PRN (11:30)
[2016-05-21] MEDS: D5 1/2NS 1,000 ML IV SCH (11:32)
[2016-05-21 12:00] VITALS: BP 129/71
[2016-05-21] MEDS: PCA HYDROmorphone 1mg/ml 30 ML IV PRN (14:28)
[2016-05-21 16:00] VITALS: BP 128/79
[2016-05-21 20:00] VITALS: BP 115/73
[2016-05-21] MEDS: Heparin 5000 units/ml inj SUBQ SCH (20:30)
[2016-05-21] MEDS: Acetaminophen 500mg (ES) tab ORAL PRN (20:36)
[2016-05-22] VITALS (7 sets, daily range): BP systolic 110–127; BP diastolic 65–73
[2016-05-22] MEDS: D5 1/2NS 1,000 ML IV SCH ×3 (02:27→16:05)
[2016-05-22] MEDS: PCA shift volume MISC SCH ×3 (07:26→23:15)
[2016-05-22] MEDS: Heparin 5000 units/ml inj SUBQ SCH ×2 (08:56→20:19)
[2016-05-22] MEDS: Diphenydramine inj IV PRN (09:05)
[2016-05-22] MEDS ORDERED: D5 1/2NS 1000ml IV ONE (09:55)
--- NOTE | 2016-05-22 11:33 | General Progress Note ---
Assessment/Plan Problem List: (1) Abscess ICD Codes: L02.91 - Cutaneous abscess, unspecified SNOMED: 618135567 (2) Inguinal abscess ICD Codes: L02.214 - Cutaneous abscess of groin SNOMED: 02654415 (3) Hidradenitis ICD Codes: L73.2 - Hidradenitis suppurativa SNOMED: 69615680 (4) Microcytic anemia ICD Codes: D50.9 - Iron deficiency anemia, unspecified SNOMED: 782290237 (5) Constipation ICD Codes: K59.00 - Constipation, unspecified SNOMED: 22902228 (6) Headache ICD Codes: R51 - Headache SNOMED: 80606526 Assessment/Plan IV abx f/u blood cx Pain control H and H stable Supp care Wound care s/p Debridement of bilateral groin,thighs,lower abdomen, and vulva POD 2 bowel regimen tylenol for JEROME Time spent on case: 45 minutes with 28 mins dedicated to care coordination and counseling Subjective Date patient seen: May 22, 2016 Time patient seen: 11:31 Allergies: Coded Allergies: Dust (Verified Allergy, Mild, 12/30/15) SHELLFISH DERIVED (Unverified Allergy, Mild, 12/30/15) STRAWBERRY (Verified Allergy, Mild, 12/30/15) MARCIN INHIBITORS (Unverified Allergy, Unknown, 12/29/15) Uncoded Allergies: muñoz (Allergy, Mild, 12/30/15) shellfish (Allergy, Mild, 12/30/15) Subjective no acute events o/n Objective Last 24 Hour Vital Signs Date Time Temp Pulse Resp B/P Pulse Ox O2 Delivery O2 Flow Rate FiO2 05/22/16 08:00 97.0 77 21 110/73 98 Room Air 05/22/16 04:00 18 05/22/16 04:00 97.5 69 18 113/69 97 Room Air 05/22/16 00:00 18 05/22/16 00:00 98.1 81 18 123/71 99 Room Air 05/21/16 20:00 98.2 82 20 115/73 97 Room Air 05/21/16 20:00 18 05/21/16 16:00 98.4 83 20 128/79 92 Room Air 05/21/16 14:58 97.5 05/21/16 12:00 18 12/24/16 12:00 97.5 80 18 129/71 99 Room Air Intake and Output 05/21/16 05/22/16 19:00 07:00 Intake Total 1300 ml 1365 ml Output Total 450 ml 850 ml Balance 850 ml 515 ml Intake Oral 650 ml 540 ml IV Total 650 ml 825 ml Output Urine Total 450 ml 850 ml Height (Feet): 5 Height (Inches): 8.00 Weight (Pounds): 292 Objective General Appearance: WD/WN, no apparent distress EENT: PERRL/EOMI, normal ENT inspection Neck: non-tender, normal alignment Cardiovascular: normal peripheral pulses, normal rate Respiratory/Chest: chest wall non-tender, lungs clear Abdomen: normal bowel sounds, non tender Extremities: normal range of motion Edema: no edema noted Arm (L), no edema noted Arm (R), no edema noted Leg (L), no edema noted Leg (R), no edema noted Pedal (L), no edema noted Pedal (R), no edema noted 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 May 22, 2016 11:33
[2016-05-22] MEDS: Acetaminophen 500mg (ES) tab ORAL PRN (12:39)
[2016-05-22] MEDS ORDERED: DiphenhydrAMINE 50mg/ml Inj IVP PRN ×2 (15:00→16:00)
[2016-05-22] MEDS ORDERED: Rate Change PCA 1 Each MISC PRN (15:00)
[2016-05-22] MEDS ORDERED: Naloxone 0.4mg/ml Inj IVP PRN (15:00)
[2016-05-22] MEDS: PCA HYDROmorphone 1mg/ml 30 ML IV PRN (15:06)
[2016-05-23 04:00] VITALS: BP 134/87
[2016-05-23] MEDS: D5 1/2NS 1,000 ML IV SCH ×2 (04:04→18:47)
[2016-05-23] MEDS: PCA shift volume MISC SCH ×3 (07:20→23:00)
[2016-05-23 08:00] VITALS: BP 128/75
[2016-05-23] MEDS: Heparin 5000 units/ml inj SUBQ SCH ×2 (09:28→20:37)
--- NOTE | 2016-05-23 09:50 | General Progress Note ---
Progress Note Progress Note Pt seen and examined. POD# 3 and doing well. Wounds all healthy with no evidence of infection. Plan to OR on mon for definitive closure of wounds. Consent and NPO after MN on . ONEIDA Carter MD May 23, 2016 09:50
--- NOTE | 2016-05-23 11:19 | General Progress Note ---
Assessment/Plan Problem List: (1) Abscess ICD Codes: L02.91 - Cutaneous abscess, unspecified SNOMED: 889708291 (2) Inguinal abscess ICD Codes: L02.214 - Cutaneous abscess of groin SNOMED: 80052891 (3) Hidradenitis ICD Codes: L73.2 - Hidradenitis suppurativa SNOMED: 07242310 (4) Microcytic anemia ICD Codes: D50.9 - Iron deficiency anemia, unspecified SNOMED: 136881373 (5) Constipation ICD Codes: K59.00 - Constipation, unspecified SNOMED: 32005023 (6) Headache ICD Codes: R51 - Headache SNOMED: 30506203 Assessment/Plan IV abx f/u blood cx Pain control H and H stable Supp care Wound care s/p Debridement of bilateral groin,thighs,lower abdomen, and vulva POD 3 bowel regimen tylenol for JEROME Time spent on case: 45 minutes with 28 mins dedicated to care coordination and counseling Subjective Date patient seen: May 23, 2016 Time patient seen: 11:18 Allergies: Coded Allergies: Dust (Verified Allergy, Mild, 12/30/15) SHELLFISH DERIVED (Unverified Allergy, Mild, 12/30/15) STRAWBERRY (Verified Allergy, Mild, 12/30/15) MARCIN INHIBITORS (Unverified Allergy, Unknown, 12/29/15) Uncoded Allergies: muñoz (Allergy, Mild, 12/30/15) shellfish (Allergy, Mild, 12/30/15) Subjective no acute events o/n Objective Last 24 Hour Vital Signs Date Time Temp Pulse Resp B/P Pulse Ox O2 Delivery O2 Flow Rate FiO2 05/23/16 08:00 98.2 93 20 128/75 98 Room Air 05/23/16 08:00 18 05/23/16 04:00 98.4 94 18 134/87 98 Room Air 05/23/16 04:00 18 05/23/16 00:00 18 05/22/16 23:47 98.6 79 18 119/69 100 Room Air 05/22/16 20:00 20 05/22/16 20:00 98.1 87 17 118/65 96 Room Air 05/22/16 15:57 20 05/22/16 15:49 98.2 87 20 121/72 98 Room Air 05/22/16 13:38 97.0 05/22/16 12:00 18 05/22/16 12:00 98.1 82 23 127/69 99 Room Air Intake and Output 05/22/16 05/23/16 19:00 07:00 Intake Total 1360 ml 1615 ml Output Total 500 ml 3200 ml Balance 860 ml -1585 ml Intake Oral 360 ml 740 ml IV Total 1000 ml 875 ml Output Urine Total 500 ml 3200 ml # Bowel Movements 1 Height (Feet): 5 Height (Inches): 8.00 Weight (Pounds): 292 General Appearance: WD/WN, no apparent distress EENT: PERRL/EOMI, normal ENT inspection Neck: non-tender, normal alignment Cardiovascular: normal peripheral pulses, normal rate Respiratory/Chest: chest wall non-tender, lungs clear Abdomen: normal bowel sounds, non tender Extremities: normal range of motion, non-tender Edema: no edema noted Arm (L), no edema noted Arm (R), no edema noted Leg (L), no edema noted Leg (R), no edema noted Pedal (L), no edema noted Pedal (R), no edema noted 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, no motor/sensory deficits Skin: other - b/l inguinal wound c/d; packed Objective General Appearance: WD/WN, no apparent distress EENT: PERRL/EOMI, normal ENT inspection Neck: non-tender, normal alignment Cardiovascular: normal peripheral pulses, normal rate Respiratory/Chest: chest wall non-tender, lungs clear Abdomen: normal bowel sounds, non tender Extremities: normal range of motion Edema: no edema noted Arm (L), no edema noted Arm (R), no edema noted Leg (L), no edema noted Leg (R), no edema noted Pedal (L), no edema noted Pedal (R), no edema noted 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 May 23, 2016 11:19
[2016-05-23] MEDS: Milk of Magnesia 30ml Ud ORAL SCH (11:47)
[2016-05-23 12:00] VITALS: BP 124/82
[2016-05-23] MEDS: PCA HYDROmorphone 1mg/ml 30 ML IV PRN (14:51)
[2016-05-23 16:09] VITALS: BP 143/77
[2016-05-23 20:00] VITALS: BP 116/65
[2016-05-24] VITALS: BP 128/74
[2016-05-24 04:00] VITALS: BP 120/70
[2016-05-24] MEDS: D5 1/2NS 1,000 ML IV SCH ×2 (05:16→20:04)
[2016-05-24] MEDS: PCA shift volume MISC SCH ×3 (07:13→23:00)
[2016-05-24 08:00] VITALS: BP 135/78
[2016-05-24] MEDS: Milk of Magnesia 30ml Ud ORAL SCH (08:55)
[2016-05-24] MEDS: Heparin 5000 units/ml inj SUBQ SCH ×2 (09:00→20:07)
[2016-05-24] MEDS: Ocean Nasal Spray 45ml NASAL SCH ×2 (09:33→20:07)
[2016-05-24 12:00] VITALS: BP 139/63
[2016-05-24] MEDS ORDERED: Rate Change PCA 1 Each MISC PRN (14:00)
[2016-05-24] MEDS ORDERED: Naloxone 0.4mg/ml Inj IVP PRN (14:00)
[2016-05-24] MEDS ORDERED: DiphenhydrAMINE 50mg/ml Inj IVP PRN (14:00)
[2016-05-24] MEDS ORDERED: Lactulose 20gm/30ml UDC ORAL ONE (14:15)
[2016-05-24] MEDS ORDERED: PCA HYDROmorphone 1mg/ml 30 ML IV PRN (15:00)
[2016-05-24 15:46] VITALS: BP 137/75
--- NOTE | 2016-05-24 18:27 | General Progress Note ---
Assessment/Plan Problem List: (1) Abscess ICD Codes: L02.91 - Cutaneous abscess, unspecified SNOMED: 026030038 (2) Inguinal abscess ICD Codes: L02.214 - Cutaneous abscess of groin SNOMED: 45507647 (3) Hidradenitis ICD Codes: L73.2 - Hidradenitis suppurativa SNOMED: 37012268 (4) Microcytic anemia ICD Codes: D50.9 - Iron deficiency anemia, unspecified SNOMED: 558177074 (5) Constipation ICD Codes: K59.00 - Constipation, unspecified SNOMED: 76468069 (6) Headache ICD Codes: R51 - Headache SNOMED: 55265741 Assessment/Plan IV abx f/u blood cx Pain control H and H stable Supp care Wound care s/p Debridement of bilateral groin,thighs,lower abdomen, and vulva POD 4 scheduled for take down of dressings tomorrow bowel regimen tylenol for JEROME Time spent on case: 45 minutes with 28 mins dedicated to care coordination and counseling Subjective Date patient seen: May 24, 2016 Time patient seen: 18:26 Allergies: Coded Allergies: Dust (Verified Allergy, Mild, 12/30/15) SHELLFISH DERIVED (Unverified Allergy, Mild, 12/30/15) STRAWBERRY (Verified Allergy, Mild, 12/30/15) MARCIN INHIBITORS (Unverified Allergy, Unknown, 12/29/15) Uncoded Allergies: muñoz (Allergy, Mild, 12/30/15) shellfish (Allergy, Mild, 12/30/15) Subjective no acute events o/n Objective Last 24 Hour Vital Signs Date Time Temp Pulse Resp B/P Pulse Ox O2 Delivery O2 Flow Rate FiO2 05/24/16 16:00 18 05/24/16 15:46 98.4 102 20 137/75 97 Room Air 05/24/16 15:11 97.7 05/24/16 14:42 18 05/24/16 14:41 18 05/24/16 12:00 97.7 84 20 139/63 100 Room Air 05/24/16 12:00 18 05/24/16 08:00 98.1 86 20 135/78 96 Room Air 05/24/16 07:59 18 05/24/16 04:00 98.2 85 18 120/70 97 Room Air 12/27/16 04:00 18 05/24/16 00:00 98.4 89 18 128/74 98 Room Air 05/24/16 00:00 18 05/23/16 20:00 98.4 88 19 116/65 100 Room Air 05/23/16 20:00 20 Intake and Output 05/23/16 05/24/16 19:00 07:00 Intake Total 1595 ml 1640 ml Output Total 1625 ml 1900 ml Balance -30 ml -260 ml Intake Oral 720 ml 740 ml IV Total 875 ml 900 ml Output Urine Total 1625 ml 1900 ml Height (Feet): 5 Height (Inches): 8.00 Weight (Pounds): 292 Objective General Appearance: WD/WN, no apparent distress EENT: PERRL/EOMI, normal ENT inspection Neck: non-tender, normal alignment Cardiovascular: normal peripheral pulses, normal rate Respiratory/Chest: chest wall non-tender, lungs clear Abdomen: normal bowel sounds, non tender Extremities: normal range of motion Edema: no edema noted Arm (L), no edema noted Arm (R), no edema noted Leg (L), no edema noted Leg (R), no edema noted Pedal (L), no edema noted Pedal (R), no edema noted 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 May 24, 2016 18:27
[2016-05-24] MEDS ORDERED: Bisacodyl EC 5mg tab ORAL PRN (18:30)
[2016-05-24] MEDS ORDERED: Eucerin Cream 15gm TOPIC PRN (19:15)
[2016-05-24 20:00] VITALS: BP_SYST 114; BP_SYST 117; BP_DIAS 55; BP_DIAS 59
[2016-05-24] MEDS: Silver Sulfadiazine Cream 25gm TOPIC SCH (20:04)
[2016-05-25] VITALS (16 sets, daily range): BP systolic 113–141; BP diastolic 66–93
[2016-05-25] MEDS: PCA shift volume MISC SCH ×3 (07:10→23:00)
[2016-05-25] MEDS ORDERED: Lidocaine 1% 10mg/ml/Epi 0.005mg/ml 30ml vial INJ ONE (07:10)
[2016-05-25] MEDS ORDERED: EPINEPHrine 1mg/1ml Amp ONE (07:10)
[2016-05-25] MEDS ORDERED: Bacitracin 50000 Units Vial ONE (07:11)
--- NOTE | 2016-05-25 07:59 | Pre-Procedure Note/Attestation ---
Pre-Procedure Note/Attestation Complete Prior to Procedure Planned Procedure: bilateral Procedure Narrative: Closure of bilateral open thigh,vulvar, and lower abdominal wound Indications for Procedure Pre-Operative Diagnosis: Groin infection and vulvar infection Attestation I attest that I discussed the nature of the procedure; its benefits; risks and complications; and alternatives (and the risks and benefits of such alternatives ), prior to the procedure, with the patient (or the patient's legal financial services sales representative). I attest that, if there was a reasonable possibility of needing a blood transfusion, the patient (or the patient's legal financial services sales representative) was given the [place] Department [employer] Services standardized written summary, pursuant to the [place] Blood Safety Act ([place] Health and Safety Code # 1645, as amended). I attest that I re-evaluated the patient just prior to the surgery and that there has been no change in the patient's H&P, except as documented below: ONEIDA SHANKAR May 25, 2016 07:59
--- NOTE | 2016-05-25 07:59 | Operative Note - PDOC ---
Operative Note Operative Note Pre-op Diagnosis: Groin infection and vulvar infection Procedure: Closure and coverage of thigh, vulvar, and lower abdominal wounds Post-op Diagnosis: same as pre-op Surgeon: Augie Flight Service Agent: Cheri Anesthesia: general Specimen: none Complications: none Condition: stable Estimated Blood Loss: minimal Drains: NICKI Implant(s) used?: No ONEIDA SHANKAR May 25, 2016 07:59
[2016-05-25] MEDS ORDERED: Zolpidem 5mg tab ORAL PRN (08:00)
[2016-05-25] MEDS ORDERED: Rate Change PCA 1 Each MISC PRN (08:00)
[2016-05-25] MEDS ORDERED: fentaNYL 100 mcg/2 mL IV ONE (08:30)
[2016-05-25] MEDS ORDERED: Sterile Water Irrig 1000ml IRRIG ONE (08:30)
[2016-05-25] MEDS ORDERED: Midazolam 2mg/2ml Inj ONE (08:30)
[2016-05-25] MEDS ORDERED: Zemuron 50mg/5ml Inj IV ONE (08:30)
[2016-05-25] MEDS ORDERED: Ketorolac 30mg Inj ONE (08:30)
[2016-05-25] MEDS ORDERED: Propofol 10mg/ml 20ml IV ONE (08:30)
[2016-05-25] MEDS ORDERED: Neostigmine 1mg/ml 10ml Inj ONE (08:30)
[2016-05-25] MEDS ORDERED: Succinylcholine 20mg/ml 10ml vial ONE (08:30)
[2016-05-25] MEDS ORDERED: Morphine Sulfate 10mg/ml Inj ONE (08:30)
[2016-05-25] MEDS ORDERED: Glycopyrrolate 0.2mg/ml 1ml Vial ONE (08:30)
[2016-05-25] MEDS ORDERED: LR 1000ml ONE (08:30)
[2016-05-25] MEDS ORDERED: NS Irrig 1000ml ONE (08:30)
[2016-05-25] MEDS ORDERED: Muri-Lube ONE (08:32)
[2016-05-25] MEDS: Milk of Magnesia 30ml Ud ORAL SCH (08:56)
[2016-05-25] MEDS: Heparin 5000 units/ml inj SUBQ SCH ×2 (08:56→20:07)
[2016-05-25] MEDS: Ocean Nasal Spray 45ml NASAL SCH ×2 (08:56→20:03)
[2016-05-25] MEDS: Silver Sulfadiazine Cream 25gm TOPIC SCH (08:57)
[2016-05-25] MEDS ORDERED: NS Irrig 1000ml IRRIG ONE (09:19)
[2016-05-25] MEDS ORDERED: LR 1000ml 1,000 ML IVLG SCH (09:24)
--- NOTE | 2016-05-25 09:24 | Anethesia Preoperative Eval ---
Anesthesia Pre-op PMH/ROS General Date of Evaluation: May 25, 2016 Time of Evaluation: 08:15 Anesthesiologist: Naveen ASA Score: ASA 3 Mallampati Score Class I : Soft palate, uvula, fauces, pillars visible Class II: Soft palate, uvula, fauces visible Class III: Soft palate, base of uvula visible Class IV: Only hard plate visible Mallampati Classification: Class III Surgeon: Augie Diagnosis: Bilateral groin hydradenitis Surgical Procedure: Bilateral debridement and closure of groin wounds Anesthesia History: none Family History: no anesthesia problems Allergies: Coded Allergies: Dust (Verified Allergy, Mild, 12/30/15) SHELLFISH DERIVED (Unverified Allergy, Mild, 12/30/15) STRAWBERRY (Verified Allergy, Mild, 12/30/15) MARCIN INHIBITORS (Unverified Allergy, Unknown, 12/29/15) Uncoded Allergies: muñoz (Allergy, Mild, 12/30/15) shellfish (Allergy, Mild, 12/30/15) Past Medical History Cardiovascular: Reports: HTN, Denies: CAD, DC, arrhythmia, other, valve dz Pulmonary: Denies: COPD, OSMAR, asthma, other Gastrointestinal/Genitourinary: Reports: GERD, Denies: CRI, ESRD, other Neurologic/Psychiatric: Reports: depression/anxiety, Denies: CVA, TIA, dementia, other Endocrine: Denies: DM, hypothyroidism, other, steroids HEENT: Denies: [place] (L), [place] (R), cataract (L), cataract (R), glaucoma, other Hematology/Immune: Reports: anemia - mild, Denies: DVT, bleeding disorder, other Musculoskeletal/Integumentary: Denies: DDD, DJD, OA, RA, edema, other Other: obesity PMH Narrative: as above PSxH Narrative: multiple Sx for treatment of hydradenitis Anesthesia Pre-op Phys. Exam Physician Exam Last Vital Signs Date Time Temp Pulse Resp B/P Pulse Ox O2 Delivery O2 Flow Rate FiO2 05/25/16 04:00 19 05/25/16 04:00 98.1 87 128/83 96 Room Air 05/20/16 20:00 3.0 Constitutional: NAD Neurologic: CN 2-12 intact Cardiovascular: RRR, no M/R/G Respiratory: CTA Gastrointestinal: other - obesity Airway Exam Mallampati Score: Class III MO: full Neck: flexible ROM: limited Teeth: missing Dentures: no lower, no upper Anesthesia Pre-op A/P Labs see chart Risk Assessment & Plan Assessment: ASA 3 Plan: GA with ETT Status Change Before Surgery: No Pre-Antibiotics Drug: Ancef 1gr. Given Within 1 Hr of Incision: Yes Time Given: 09:02 ALVIN DAS M.D. May 25, 2016 09:24
[2016-05-25] MEDS ORDERED: Midazolam 2mg/2ml Inj IVP PRN (09:30)
[2016-05-25] MEDS ORDERED: Metoclopramide 10mg/2ml Inj IVP PRN (09:30)
[2016-05-25] MEDS ORDERED: Meperidine 25mg/ml Inj IV PRN (09:30)
[2016-05-25] MEDS ORDERED: Hydromorphone 0.5mg/0.5ml inj IVP PRN (09:30)
[2016-05-25] MEDS ORDERED: DiphenhydrAMINE 50mg/ml Inj IVP PRN (09:30)
[2016-05-25] MEDS: D5 1/2NS 1,000 ML IV SCH ×3 (09:59→23:35)
--- NOTE | 2016-05-25 10:46 | General Progress Note ---
Assessment/Plan Problem List: (1) Abscess ICD Codes: L02.91 - Cutaneous abscess, unspecified SNOMED: 256747668 (2) Inguinal abscess ICD Codes: L02.214 - Cutaneous abscess of groin SNOMED: 28554418 (3) Hidradenitis ICD Codes: L73.2 - Hidradenitis suppurativa SNOMED: 81278223 (4) Microcytic anemia ICD Codes: D50.9 - Iron deficiency anemia, unspecified SNOMED: 502496745 (5) Constipation ICD Codes: K59.00 - Constipation, unspecified SNOMED: 64890931 (6) Headache ICD Codes: R51 - Headache SNOMED: 05541015 Assessment/Plan IV abx f/u blood cx Pain control H and H stable Supp care Wound care s/p Debridement of bilateral groin,thighs,lower abdomen, and vulva POD 5 scheduled for wound closures today bowel regimen tylenol for JEROME Time spent on case: 45 minutes with 28 mins dedicated to care coordination and counseling Subjective Date patient seen: May 25, 2016 Time patient seen: 10:45 Allergies: Coded Allergies: Dust (Verified Allergy, Mild, 12/30/15) SHELLFISH DERIVED (Unverified Allergy, Mild, 12/30/15) STRAWBERRY (Verified Allergy, Mild, 12/30/15) MARCIN INHIBITORS (Unverified Allergy, Unknown, 12/29/15) Uncoded Allergies: muñoz (Allergy, Mild, 12/30/15) shellfish (Allergy, Mild, 12/30/15) Subjective no acute events o/n Objective Last 24 Hour Vital Signs Date Time Temp Pulse Resp B/P Pulse Ox O2 Delivery O2 Flow Rate FiO2 05/25/16 04:00 19 05/25/16 04:00 98.1 87 22 128/83 96 Room Air 05/25/16 00:20 97.9 87 20 113/73 98 Room Air 05/25/16 00:00 18 05/24/16 23:08 18 05/24/16 20:00 98.1 86 19 117/59 98 Room Air 05/24/16 16:00 18 05/24/16 15:46 98.4 102 20 137/75 97 Room Air 05/24/16 15:11 97.7 05/24/16 14:42 18 05/24/16 14:41 18 05/24/16 12:00 97.7 84 20 139/63 100 Room Air 05/24/16 12:00 18 Intake and Output 05/24/16 05/25/16 18:59 06:59 Intake Total 1557.5 ml 965 ml Output Total 2150 ml 3400 ml Balance -592.5 ml -2435 ml Intake Oral 720 ml 240 ml IV Total 837.5 ml 725 ml Output Urine Total 2150 ml 3400 ml # Bowel Movements 2 Height (Feet): 5 Height (Inches): 8.00 Weight (Pounds): 292 Objective General Appearance: WD/WN, no apparent distress EENT: PERRL/EOMI, normal ENT inspection Neck: non-tender, normal alignment Cardiovascular: normal peripheral pulses, normal rate Respiratory/Chest: chest wall non-tender, lungs clear Abdomen: normal bowel sounds, non tender Extremities: normal range of motion Edema: no edema noted Arm (L), no edema noted Arm (R), no edema noted Leg (L), no edema noted Leg (R), no edema noted Pedal (L), no edema noted Pedal (R), no edema noted 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 May 25, 2016 10:46
[2016-05-25] MEDS: fentaNYL 100 mcg/2 mL IV PRN ×2 (11:52→12:36)
[2016-05-25] MEDS ORDERED: Naloxone 0.4mg/ml Inj IV PRN (12:00)
[2016-05-25] MEDS: PCA HYDROmorphone 30mg/30ml Syr IV PRN (12:45)
--- NOTE | 2016-05-25 12:57 | Immediate Post-Op Evaluation ---
Immediate Post-Op Evalulation Immediate Post-Op Evalulation Procedure: Debridement and closure of bilateral groin hydradenitis Date of Evaluation: May 25, 2016 Time of Evaluation: 11:18 IV Fluids: 900 Blood Products: none Estimated Blood Loss: 50 Urinary Output: 400 Blood Pressure Systolic: 126 Blood Pressure Diastolic: 58 Pulse Rate: 78 Respiratory Rate: 24 O2 Sat by Pulse Oximetry: 99 Temperature (Fahrenheit): 97.4 Pain Score (1-10): 2 Nausea: No Vomiting: No Complications none Patient Status: reacts, patent, extubated, none Hydration Status: adequate ALVIN DAS M.D. May 25, 2016 12:57
[2016-05-25] MEDS ORDERED: D5 1/2NS 1000ml IV ONE ×2 (16:59→17:42)
--- NOTE | 2016-05-25 18:57 | Operative Note - Dictated ---
DATE OF OPERATION: 05/25/2016 PREOPERATIVE DIAGNOSES: 1. Bilateral open vulvar wounds. 2. Bilateral open thigh wound. 3. Open lower abdominal wound. POSTOPERATIVE DIAGNOSES: 1. Bilateral open vulvar wounds. 2. Bilateral open thigh wound. 3. Open lower abdominal wound. PROCEDURE: 1. Adjacent tissue transfer closure of left thigh wound measuring 30 sq cm. 2. Adjacent tissue transfer closure of right thigh wound measuring 40 sq cm. 3. Full-thickness skin graft taken from left groin for coverage of lower abdominal wound. 4. Left vulvar fasciocutaneous flap elevation for closure of valvular wound. 5. Right vulvar fasciocutaneous flap elevation for closure of right vulvar wound. SURGEON: Jacob Ghosh M.D. [employer]TEGRATION SPECIALIST SURGEON: Minda Alonzo M.D. ANESTHESIA: General. COMPLICATIONS: None. DRAINS: size #15 NICKI in each thigh. SPECIMEN: Lower abdominal skin. DISPOSITION: Stable to the recovery room. INDICATIONS FOR SURGERY: This is a 41-year-old female with no significant past medical history, who is now 5 days postop from definitive excision of vulvar and thigh lesion with flap elevation who is now ready to undergo definitive closure of her wounds with adjacent tissue transfer, flap closure, as well as full-thickness skin graft. She understands the risks and benefits of surgery and agrees to proceed. DETAILS OF THE OPERATION: The patient was brought to the operating room and laid in the lithotomy position in the operating room table. Her lower abdomen, bilateral thighs, and perineal region was prepped and draped in a sterile and usual fashion. We first began by preparation of the left thigh wound with debridement and elevation of the previously raised flaps to prepare it for definitive closure. Once the flaps were reelevated and the wound was debrided, the pulse lavage was used to irrigate the area and hemostasis was achieved. We then were able to bring the flap edges together using the 0-Vicryl and 2-0 Vicryl sutures and dalton were used to close the skin. This wound measured 30 sq cm. In a similar fashion, the contralateral right thigh wound was addressed by reelevating the flap that had been previously elevated with debridement of the nonviable surface and tissues and this was then irrigated with pulse lavage with hemostasis achieved. The wound was closed over a size #10 Juliano-Romeo drain with adjacent tissue transfer completed using 0-Vicryl and 2-0 Vicryl sutures and dalton were used to close the skin. We then turned our attention to the lower abdominal wound, this was debrided of its nonviable tissues and a full-thickness skin graft was harvested from the left groin and donor site was closed primarily as a full-thickness skin graft was then prepared on the back table with defatting leaving only the epidermis and dermis behind and the skin graft was then inserted using chromic sutures at the periphery with performed and several 3-0 chromic sutures used to bolster the dressing to the wound bed. Following this, the vulvar wounds were debrided and it was noted that under primary closure there would be tension as such a lateral fasciocutaneous flaps were elevated first on the right with proximal and distal incisions made and undermining performed these were based on perforators of the pudendal artery in a similar fashion on the right side with contralateral side the vulvar wound was noted to be under tension up with primary closure as such a fasciocutaneous flap was elevated with proximal distal incisions also made to fully mobilize the flap and both flaps were then closed and brought to the opposing edge on either side using #0 and 2-0 Vicryl sutures and a 3-0 chromic running was used to close the skin. The skin was then further reinforced with Dermabond glue. The patient tolerated the procedure well. There was no complications. Jacob Ghosh M.D. DR: Tevin JOB#: [id number] CC: MORENA
[2016-05-25 23:04] LABS: APPEARANCE,URINE CLEAR; KETONES,URINE NEGATIVE (NEGATIVE); LEUKOCYTE ESTERASE ,URINE 3+ (NEGATIVE); NITRITE,URINE POSITIVE (NEGATIVE); PH,URINE 5 (4.5-8.0); PROTEIN,URINE 1+ (NEGATIVE); UROBILINOGEN,URINE NORMAL MG/DL (0.0-1.0)
[2016-05-26] VITALS: BP 129/77
[2016-05-26 00:17] LABS: BACTERIA,URINE FEW /HPF; RBC,URINE 20-30 /HPF (0 - 2); SQUAMOUS EPITHELIAL CELL,UR FEW /LPF (NONE/OCC); WBC,URINE 30-40 /HPF (0 - 2)
[2016-05-26 01:13] LABS: BASOPHILS % (AUTO) 1.1 % (0.0-2.0); EOSINOPHILS % (AUTO) 3.9 % (0.0-3.0); LYMPHOCYTES % (AUTO) 11.3 % (20.0-45.0); MEAN CORPUSCULAR HEMOGLOBIN 23.1 PG (27.0-31.0); MEAN CORPUSCULAR HGB CONC 30.3 G/DL (32.0-36.0); MEAN CORPUSCULAR VOLUME 76 FL (80-99); MONOCYTES % (AUTO) 7.4 % (1.0-10.0); NEUTROPHILS % (AUTO) 76.5 % (45.0-75.0); PLATELET COUNT 275 K/UL (150-450); RED BLOOD COUNT 3.88 M/UL (4.20-5.40); RED CELL DISTRIBUTION WIDTH 16.8 % (11.6-14.8); WHITE BLOOD COUNT 9.2 K/UL (4.8-10.8)
[2016-05-26 04:00] VITALS: BP 134/73
[2016-05-26] MEDS: PCA shift volume MISC SCH ×3 (07:11→23:49)
[2016-05-26 08:00] VITALS: BP 126/74
[2016-05-26] MEDS: Ocean Nasal Spray 45ml NASAL SCH ×2 (08:56→20:19)
[2016-05-26] MEDS: Silver Sulfadiazine Cream 25gm TOPIC SCH (08:57)
[2016-05-26] MEDS: Milk of Magnesia 30ml Ud ORAL SCH (09:00)
[2016-05-26] MEDS: Heparin 5000 units/ml inj SUBQ SCH ×2 (09:03→20:20)
--- NOTE | 2016-05-26 09:41 | 48 Hour Post Anesthesia Eval ---
Post Anesthesia Evaluation Procedure: Debridement and closure of bilateral groin hydradenitis Date of Evaluation: May 26, 2016 Time of Evaluation: 09:39 Blood Pressure Systolic: 132 0: 68 Pulse Rate: 74 Respiratory Rate: 20 Temperature (Fahrenheit): 97.8 O2 Sat by Pulse Oximetry: 98 Airway: patent Nausea: No Vomiting: No Pain Intensity: 3 Hydration Status: adequate Cardiopulmonary Status: stable Mental Status/LOC: patient returned to baseline Follow-up Care/Observations: n/a Post-Anesthesia Complications: none Follow-up care needed: N/A ALVIN DAS M.D. May 26, 2016 09:41
[2016-05-26 12:00] VITALS: BP 121/57
[2016-05-26] MEDS: D5 1/2NS 1,000 ML IV SCH (12:21)
[2016-05-26] MEDS: PCA HYDROmorphone 30mg/30ml Syr IV PRN (13:45)
--- NOTE | 2016-05-26 15:39 | General Progress Note ---
Assessment/Plan Problem List: (1) Abscess ICD Codes: L02.91 - Cutaneous abscess, unspecified SNOMED: 769050860 (2) Inguinal abscess ICD Codes: L02.214 - Cutaneous abscess of groin SNOMED: 29230051 (3) Hidradenitis ICD Codes: L73.2 - Hidradenitis suppurativa SNOMED: 91403451 (4) Microcytic anemia ICD Codes: D50.9 - Iron deficiency anemia, unspecified SNOMED: 666628457 (5) Constipation ICD Codes: K59.00 - Constipation, unspecified SNOMED: 26307036 (6) Headache ICD Codes: R51 - Headache SNOMED: 33897038 Assessment/Plan IV abx, Cefazolin-->Vanc f/u blood cx Pain control H and H stable Supp care Wound care s/p Debridement of bilateral groin,thighs,lower abdomen, and vulva POD 5 scheduled for wound closures today bowel regimen tylenol for JEROME and f/c f/u blood cultures, ua and ucx IC heparin dvt ppx PT Time spent on case: 45 minutes with 28 mins dedicated to care coordination and counseling Subjective Date patient seen: May 26, 2016 Time patient seen: 15:35 Allergies: Coded Allergies: Dust (Verified Allergy, Mild, 12/30/15) SHELLFISH DERIVED (Unverified Allergy, Mild, 12/30/15) STRAWBERRY (Verified Allergy, Mild, 12/30/15) MARCIN INHIBITORS (Unverified Allergy, Unknown, 12/29/15) Uncoded Allergies: muñoz (Allergy, Mild, 12/30/15) shellfish (Allergy, Mild, 12/30/15) Subjective pt having subjective f/c Objective Last 24 Hour Vital Signs Date Time Temp Pulse Resp B/P Pulse Ox O2 Delivery O2 Flow Rate FiO2 05/26/16 14:15 98.4 05/26/16 13:46 18 05/26/16 13:45 18 05/26/16 12:00 18 05/26/16 12:00 98.4 97 20 121/57 97 Room Air 05/26/16 10:02 99.9 05/26/16 09:57 99.9 05/26/16 09:41 74 20 98 05/26/16 08:00 18 05/26/16 08:00 100.4 97 20 126/74 98 Room Air 05/26/16 04:00 16 05/26/16 04:00 98.9 98 18 134/73 100 Room Air 05/26/16 00:00 100.8 97 19 129/77 98 Room Air 05/26/16 00:00 16 05/25/16 20:14 100.2 103 20 126/70 99 Room Air 05/25/16 20:00 16 05/25/16 19:16 16 05/25/16 16:00 98.1 90 20 141/93 99 Room Air 05/25/16 15:55 16 Intake and Output 05/25/16 05/26/16 19:00 07:00 Intake Total 1395 ml 1400 ml Output Total 2565 ml 1098 ml Balance -1170 ml 302 ml Intake Oral 720 ml 500 ml IV Total 675 ml 900 ml Output Urine Total 2475 ml 1050 ml Drainage Total 90 ml 48 ml Laboratory Tests 05/25/16 21:47: Urine Color Yellow, Urine Appearance Clear, Urine pH 5, Urine Specific [place] 1.010, Urine Protein 1+H, Urine Glucose (UA) Negative, Urine Ketones Negative, Urine Occult Blood 5+H, Urine Nitrite PositiveH, Urine Bilirubin Negative, Urine Urobilinogen Normal, Urine Leukocyte Esterase 3+H, Urine RBC 20-30H, Urine WBC 30-40H, Urine Squamous Epithelial Cells Few, Urine Bacteria Few 05/26/16 01:00: White Blood Count 9.2, Red Blood Count 3.88L, Hemoglobin 8.9L, Hematocrit 29.6L , Mean Corpuscular Volume 76L, Mean Corpuscular Hemoglobin 23.1L, Mean Corpuscular Hemoglobin Concent 30.3L, Red Cell Distribution Width 16.8H, Platelet Count 275, Mean Platelet Volume 6.0L, Neutrophils (%) (Auto) 76.5H, Lymphocytes (%) (Auto) 11.3L, Monocytes (%) (Auto) 7.4, Eosinophils (%) (Auto) 3.9H, Basophils (%) (Auto) 1.1 Height (Feet): 5 Height (Inches): 8.00 Weight (Pounds): 292 Objective General Appearance: WD/WN, in mild distress EENT: PERRL/EOMI, normal ENT inspection Neck: non-tender, normal alignment Cardiovascular: normal peripheral pulses, normal rate Respiratory/Chest: chest wall non-tender, lungs clear Abdomen: normal bowel sounds, non tender Extremities: normal range of motion Edema: no edema noted Arm (L), no edema noted Arm (R), no edema noted Leg (L), no edema noted Leg (R), no edema noted Pedal (L), no edema noted Pedal (R), no edema noted Generalized 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 May 26, 2016 15:39
[2016-05-26 16:00] VITALS: BP 99/57
[2016-05-26] MEDS: cefTRIAXone 1 GM in D5W 50 ML IVPB SCH (16:34)
[2016-05-26] MEDS ORDERED: D5W IVPB ONE (17:30)
[2016-05-26] MEDS ORDERED: VANCOMYCIN IVPB ONE (17:30)
[2016-05-26] MEDS ORDERED: DiphenhydrAMINE 50mg/ml Inj IVP PRN (18:00)
[2016-05-26 20:00] VITALS: BP 111/62
[2016-05-27] VITALS: BP 109/63
[2016-05-27] MEDS: D5 1/2NS 1,000 ML IV SCH ×2 (01:59→05:24)
[2016-05-27] MEDS: Vancomycin 1.5 GM in D5W 300 ML IVPB SCH ×2 (05:24→17:00)
[2016-05-27] MEDS: PCA shift volume MISC SCH ×3 (07:00→23:25)
[2016-05-27 08:00] VITALS: BP 127/63
--- NOTE | 2016-05-27 09:27 | General Progress Note ---
Progress Note Progress Note Pt seen and examined. POD# 2 from reconstruction of vulvar and lower abdominal wounds. Doing well and pain is well controlled. Will repeat UA and if + will manpreet moe. ONEIDA Carter MD May 27, 2016 09:27
[2016-05-27] MEDS: Silver Sulfadiazine Cream 25gm TOPIC SCH (09:37)
[2016-05-27] MEDS: Ocean Nasal Spray 45ml NASAL SCH ×2 (09:37→22:11)
[2016-05-27] MEDS: Milk of Magnesia 30ml Ud ORAL SCH (09:37)
[2016-05-27] MEDS: Heparin 5000 units/ml inj SUBQ SCH ×2 (09:44→22:17)
[2016-05-27 10:16] LABS: APPEARANCE,URINE SLIGHTLY CLOUDY; KETONES,URINE NEGATIVE (NEGATIVE); LEUKOCYTE ESTERASE ,URINE 1+ (NEGATIVE); NITRITE,URINE NEGATIVE (NEGATIVE); PH,URINE 6 (4.5-8.0); PROTEIN,URINE 2+ (NEGATIVE); UROBILINOGEN,URINE NORMAL MG/DL (0.0-1.0)
[2016-05-27 10:25] LABS: BACTERIA,URINE FEW /HPF; RBC,URINE 20-30 /HPF (0 - 2); SQUAMOUS EPITHELIAL CELL,UR FEW /LPF (NONE/OCC)
[2016-05-27] MEDS ORDERED: Rate Change PCA 1 Each MISC PRN (10:45)
[2016-05-27 12:00] VITALS: BP 124/64
[2016-05-27] MEDS ORDERED: PCA HYDROmorphone 1mg/ml 30 ML IV PRN (12:00)
--- NOTE | 2016-05-27 15:51 | General Progress Note ---
Assessment/Plan Problem List: (1) Abscess ICD Codes: L02.91 - Cutaneous abscess, unspecified SNOMED: 278285134 (2) Inguinal abscess ICD Codes: L02.214 - Cutaneous abscess of groin SNOMED: 65238654 (3) Hidradenitis ICD Codes: L73.2 - Hidradenitis suppurativa SNOMED: 52725064 (4) Microcytic anemia ICD Codes: D50.9 - Iron deficiency anemia, unspecified SNOMED: 241874365 (5) Constipation ICD Codes: K59.00 - Constipation, unspecified SNOMED: 54339115 (6) Headache ICD Codes: R51 - Headache SNOMED: 50457769 Assessment/Plan IV abx, Cefazolin-->Vanc+Ceftriaxone f/u blood cx 2/2 GPC in clusters and GNR; u cx ntd Pain control H and H stable Supp care Wound care s/p Debridement of bilateral groin,thighs,lower abdomen, and vulva POD 6 s/p wound closure bowel regimen tylenol for JEROME and f/c IC heparin dvt ppx PT Time spent on case: 45 minutes with 28 mins dedicated to care coordination and counseling Subjective Date patient seen: May 27, 2016 Time patient seen: 15:48 Allergies: Coded Allergies: Dust (Verified Allergy, Mild, 12/30/15) SHELLFISH DERIVED (Unverified Allergy, Mild, 12/30/15) STRAWBERRY (Verified Allergy, Mild, 12/30/15) MARCIN INHIBITORS (Unverified Allergy, Unknown, 12/29/15) Uncoded Allergies: muñoz (Allergy, Mild, 12/30/15) shellfish (Allergy, Mild, 12/30/15) Subjective subjective f/c Objective Last 24 Hour Vital Signs Date Time Temp Pulse Resp B/P Pulse Ox O2 Delivery O2 Flow Rate FiO2 05/27/16 13:52 97.9 05/27/16 12:00 18 05/27/16 12:00 97.9 89 20 124/64 99 Room Air 05/27/16 08:00 18 05/27/16 08:00 97.9 90 18 127/63 96 Room Air 05/27/16 04:00 18 05/27/16 00:00 98.4 90 18 109/63 97 Room Air 05/27/16 00:00 18 05/26/16 20:00 98.6 96 22 111/62 98 Room Air 05/26/16 20:00 16 05/26/16 16:00 16 05/26/16 16:00 99.0 93 20 99/57 97 Room Air Intake and Output 05/26/16 05/27/16 19:00 07:00 Intake Total 1200.0 ml 435 ml Output Total 2775 ml 730 ml Balance -1575.0 ml -295 ml Intake Oral 700 ml 360 ml IV Total 500.0 ml 75 ml Output Urine Total 2750 ml 700 ml Drainage Total 25 ml 30 ml Laboratory Tests 05/27/16 09:45: Urine Color Yellow, Urine Appearance Slightly cloudy, Urine pH 6, Urine Specific [place] 1.010, Urine Protein 2+H, Urine Glucose (UA) Negative, Urine Ketones Negative, Urine Occult Blood 5+H, Urine Nitrite Negative, Urine Bilirubin Negative, Urine Urobilinogen Normal, Urine Leukocyte Esterase 1+H, Urine RBC 20-30H, Urine WBC 5-10H, Urine Squamous Epithelial Cells Few, Urine Bacteria Few Height (Feet): 5 Height (Inches): 8.00 Weight (Pounds): 292 Objective General Appearance: WD/WN, in mild distress EENT: PERRL/EOMI, normal ENT inspection Neck: non-tender, normal alignment Cardiovascular: normal peripheral pulses, normal rate Respiratory/Chest: chest wall non-tender, lungs clear Abdomen: normal bowel sounds, non tender Extremities: normal range of motion Edema: no edema noted Arm (L), no edema noted Arm (R), no edema noted Leg (L), no edema noted Leg (R), no edema noted Pedal (L), no edema noted Pedal (R), no edema noted 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 May 27, 2016 15:51
[2016-05-27 16:15] VITALS: BP 120/68
--- NOTE | 2016-05-27 17:21 | Infectious Diseases Prog Note ---
Assessment/Plan Assessment/Plan Full consult dictated: A) 1) uti, + ua, fevers 2) gram + bc, ? bacteremia, ? contaminant, line new (05/20) 3) bilateral inguinal/mons/vulvar/thigh wound infection/abscess/hidradenitis suppurativa 4) s/p debridement and flaps 5) anemia, [place]ane, constipation, pain mgt 6) allergies - marcin inhibitors, shellfish, strawberries 7) sh-negative, fh-nc, mar noted, notes and records reviewed 8) d/w RN P) 1) vancomycin and rocephin 2) check uc, bc id, surveillance bc, chest x-ray and labs 3) continue other treatment per primary and surgery 4) orders entered and noted 5) wound care per surgery 6) d/w patient and sister 7) communicated with Dr. Peguero 8) thank you Subjective Allergies: Coded Allergies: Dust (Verified Allergy, Mild, 12/30/15) SHELLFISH DERIVED (Unverified Allergy, Mild, 12/30/15) STRAWBERRY (Verified Allergy, Mild, 12/30/15) MARCIN INHIBITORS (Unverified Allergy, Unknown, 12/29/15) Uncoded Allergies: muñoz (Allergy, Mild, 12/30/15) shellfish (Allergy, Mild, 12/30/15) Objective Vital Signs Last 24 Hour Vital Signs Date Time Temp Pulse Resp B/P Pulse Ox O2 Delivery O2 Flow Rate FiO2 05/27/16 16:15 98.2 88 20 120/68 99 Room Air 05/27/16 13:52 97.9 05/27/16 12:00 18 05/27/16 12:00 97.9 89 20 124/64 99 Room Air 05/27/16 08:00 18 05/27/16 08:00 97.9 90 18 127/63 96 Room Air 05/27/16 04:00 18 05/27/16 00:00 98.4 90 18 109/63 97 Room Air 05/27/16 00:00 18 05/26/16 20:00 98.6 96 22 111/62 98 Room Air 05/26/16 20:00 16 Height (Feet): 5 Height (Inches): 8.00 Weight (Pounds): 292 Microbiology Date/Time Source Procedure Growth Status 05/25/16 21:47 Blood Blood Culture - Preliminary Resulted 05/25/16 21:47 Blood Blood Culture - Preliminary Resulted 05/25/16 21:47 Urine,Clean Catch Urine Culture - Preliminary Resulted Laboratory Tests Test 05/27/16 09:45 Urine Color Yellow Urine Appearance Slightly cloudy Urine pH 6 (4.5-8.0) Urine Specific [place] 1.010 (1.005-1.035) Urine Protein 2+ (NEGATIVE) H Urine Glucose (UA) Negative (NEGATIVE) Urine Ketones Negative (NEGATIVE) Urine Occult Blood 5+ (NEGATIVE) H Urine Nitrite Negative (NEGATIVE) Urine Bilirubin Negative (NEGATIVE) Urine Urobilinogen Normal MG/DL (0.0-1.0) Urine Leukocyte Esterase 1+ (NEGATIVE) H Urine RBC 20-30 /HPF (0 - 2) H Urine WBC 5-10 /HPF (0 - 2) H Urine Squamous Epithelial Cells Few /LPF (NONE/OCC) Urine Bacteria Few /HPF (NONE) Current Medications Medications (Trade) Dose Ordered Sig/Sonya Route PRN Reason Start Time Stop Time Status Last Admin Dose Admin Acetaminophen 650 mg 650 mg Q4H PRN ORAL FEVER 05/25/16 08:00 06/24/16 07:59 05/26/16 09:07 Bisacodyl (Dulcolax) 5 mg DAILYPRN PRN ORAL Constipation 05/24/16 18:30 06/23/16 18:29 Ceftriaxone Sodium/Dextrose (Rocephin/D5W 50ml) 50 ml @ 100 mls/hr Q24H IVPB 05/26/16 17:00 06/02/16 16:59 05/26/16 16:34 Cetirizine HCl (ZyrTEC) 10 mg DAILY ORAL 05/23/16 12:00 06/22/16 11:59 05/27/16 09:37 Dextrose (Dextrose 50%) STAT PRN IV Hypoglycemia 05/19/16 19:45 06/18/16 19:44 Dextrose/Sodium Chloride (D5 0.45% NS) 1,000 ml @ 75 mls/hr [id number] IV 05/19/16 20:39 06/18/16 20:38 05/27/16 05:24 Diphenhydramine HCl 25 mg 25 mg Q6H PRN IVP Itching 05/26/16 18:00 06/25/16 17:59 Heparin Sodium (Porcine) (Heparin 5000 units/ml) 5,000 units EVERY 12 HOURS SUBQ 05/25/16 21:00 06/24/16 20:59 05/27/16 09:44 Hydromorphone HCl (Dilaudid) 2 mg Q3H PRN SUBQ Severe Pain (Pain Scale 7-10) 05/27/16 12:00 05/29/16 11:59 Hydromorphone HCl (Dilaudid) 2 mg Q4H PRN IVP Moderate Pain (Pain Scale 4-6) 05/27/16 12:00 05/29/16 11:59 Hydromorphone HCl (REINSURANCE CLERK Dilaudid) 30 ml @ 0 mls/hr Q24H PRN IV For Pain 05/27/16 12:00 05/29/16 11:59 05/27/16 13:24 Magnesium Hydroxide (Mom) 30 ml DAILY ORAL 05/23/16 12:00 06/22/16 11:59 05/27/16 09:37 Miscellaneous Medication (REINSURANCE CLERK Rate Change) 1 ea DAILY PRN MISC REINSURANCE CLERK RATE CHANGE 05/27/16 10:45 05/29/16 10:44 Miscellaneous Medication (REINSURANCE CLERK shift volume) 1 ea Q8HR@07,15,23 MISC 05/27/16 15:00 05/29/16 14:59 05/27/16 15:22 Naloxone HCl (Narcan) 0.1 mg PRN IV . 05/25/16 12:00 05/29/16 11:59 Ondansetron HCl (Zofran) 4 mg Q6H PRN IVP Nausea & Vomiting 05/25/16 08:00 06/24/16 07:59 Silver Sulfadiazine (Silvadene Cream 25gm) 1 applic DAILY TOPIC 05/24/16 20:00 06/23/16 19:59 05/27/16 09:37 Sodium Chloride ([place] Nasal [place]) 1 spray Q12HR NASAL 05/24/16 09:00 06/23/16 08:59 05/27/16 09:37 Vancomycin HCl (Vanco rx to dose) 1 ea DAILY PRN MISC . 05/26/16 16:00 06/25/16 15:59 Vancomycin HCl 1.5 gm/Dextrose 300 ml @ 150 mls/hr Q12H IVPB 05/27/16 05:00 06/01/16 04:59 05/27/16 05:24 Zolpidem Tartrate (Ambien) 5 mg DAILYPRN PRN ORAL Insomnia 05/25/16 08:00 06/24/16 07:59 SANDEEP WALLS May 27, 2016 17:21
[2016-05-27] MEDS: cefTRIAXone 1 GM in D5W 50 ML IVPB SCH (19:05)
[2016-05-27 20:00] VITALS: BP 128/67
--- NOTE | 2016-05-27 23:17 | Consultation ---
DATE OF CONSULTATION: 05/27/2016 INFECTIOUS DISEASE CONSULTATION CONSULTING PHYSICIAN: Chavez Stacy M.D. ATTENDING PHYSICIAN: Rogelio Nicole M.D. PRIMARY PHYSICIAN: Jacob Ghosh M.D. REASON FOR CONSULTATION: Fevers, UTI, and possible bacteremia. CHIEF COMPLAINT: The patient's chief complaint coming in the hospital is hidradenitis suppurativa and infected wounds and abscesses. HISTORY OF PRESENT ILLNESS: This is a very pleasant 41-year-old female with history of hidradenitis suppurativa, who is status post with multiple infected wounds of the mons, vulvar, bilateral thigh and inguinal areas. The patient is status post debridement and flap placement. The patient now is febrile and urinalysis was consistent with UTI with positive urinalysis. She does have a Beal. The patient has a relatively new PICC line placed on 05/20/2016 and a blood cultures that are growing 2/4 gram positive organisms. Identification is pending. Chest x-ray is also been ordered by me. MAR was noted. Order was noted. Notes were reviewed. Case was discussed with the patient and her sister and the RN. The patient also was communicated with Dr. Peguero, who is associated with Dr. Nicole in primary internal medicine. The patient will continue on vancomycin and Rocephin. Pending workup. PAST MEDICAL HISTORY: Includes the following. The patient has a past medical history of microcytic anemia, history of hidradenitis suppurativa, and history of debridement of wounds and flaps. She has no diabetes or hypertension. She does have a history of headache, constipation and the patient is under pain management at this time. Please see past medical history in medical order. MEDICATIONS: She is on the following medications. She is on PAD TUFTER pump hydromorphone or Dilaudid. She is on Benadryl, Rocephin, and vancomycin. She is on heparin, Narcan as needed, Zofran, Ambien, and Tylenol. She is on silver sulfadiazine, Dulcolax, Zyrtec, MOM, and intravenous fluids. Please see medications in medical order. ALLERGIES: Include MARCIN inhibitors, dust, shellfish, strawberries and roaches, but the main medication allergy is MARCIN inhibitors. No antibiotic allergies. FAMILY HISTORY: Noncontributory. Negative for exposure to tuberculosis or cancer. SOCIAL HISTORY: Negative for smoking, alcohol, or drug use. 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 REVIEW OF SYSTEMS: Constitutional: She has a Beal. She has a PICC line. She has generalized weakness and fatigue. Her pain is controlled. Head And Neck: No head pain. No neck pain. No thrush or dysphagia. Cardiac: No chest or palpitations. Gastrointestinal: No nausea, vomiting, or diarrhea. Genitourinary: She has a Beal. Pulmonary: She has no sputum secretions, congestion, or shortness of breath. Skin: No rash or itching. Extremities: No extremity pain. Neurologic: No seizures. PHYSICAL EXAMINATION: VITAL SIGNS: Temperature 98.2 degrees, pulse rate 80, respiratory 20, blood pressure 120/68, and saturation 99%. T-max was 100.4. GENERAL: The patient is alert, responsive, and oriented x3, in no acute distress. HEAD AND NECK: Oral exam, no thrush. Eye exam, no icterus. Neck is supple. No JVD. No sinus tenderness. Normocephalic. No facial droop. No neck stiffness. HEART: Regular. No gallop or murmur. No friction rub. ABDOMEN: Soft. Positive bowel sounds. Nontender. LUNGS: Clear anteriorly bilaterally. Diminished breath sounds at the bases. No obvious rales. SKIN: No rash or dermatitis. MUSCULOSKELETAL: No effusion or contractures. Legs are without cellulitis. PERIPHERAL VASCULAR: No cyanosis or gangrene. RECTAL: Deferred. PELVIC: Deferred. GENITOURINARY: She has a Beal. Urine is cloudy. LINE SITES: She has a PICC line. No phlebitis. NEUROLOGIC: Intact and nonfocal. Alert and oriented x3. LABORATORY DATA: The patient's white count is 9.2, hemoglobin 8.9, and platelet count 275,000. The patient's creatinine is 0.9. Urinalysis had 1 to 3+ leukocyte esterase, white blood cells. Urine culture is pending. Blood cultures 2/4 gram-positive organisms and clusters. Identification is pending. Chest x-ray will be ordered. Initial chest x-ray on admission was negative for any acute process. Creatinine 0.9, white count 9.2, hemoglobin 8.9, and platelet count 275,000. ASSESSMENT AND PLAN: 1. This is a 41-year-old female with status post bilateral inguinal, mons, vulvar, thigh infected wounds, abscesses and hidradenitis suppurativa. The patient is status post debridement and flaps. Operative notes were reviewed. The patient now has postoperative fevers it looks like she has a urinary tract infection based on urinalysis. She also has gram-positive organisms in the blood 2/4 possible contaminant versus bacteremia. Line is relatively new. No lines differential this is less likely. The patient also is at risk for pulmonary infection and also atelectasis, which also caused fevers. At this time, she is on vancomycin and Rocephin. We will check urine culture and blood cultures. Check surveillance blood cultures. Check identification of positive blood cultures. Check followup laboratories and chest x-ray. Chest x-ray to rule out atelectasis versus postoperative pneumonia, which I think is less likely but certainly atelectasis cause also fevers. Continue vancomycin and Rocephin. Continue supportive measures. 2. The patient is status post debridement flap for hidradenitis suppurativa of the bilateral thigh and inguinal also vulvar and mons area, status post debridement and flap. 3. Anemia. 4. Headache. 5. Consultation. 6. Pain management per primary. 7. Allergies to MARCIN inhibitors. 8. Social history is negative. 9. No known allergies. 10. Case was discussed with RN. 11. Notes are reviewed. 12. Case was communicated with Dr. Peguero. Thank you for this consultation. I will follow. Chavez Stacy M.D. DR: YKLE JOB#: [id number] CC:
[2016-05-28] VITALS: BP 117/71
[2016-05-28] MEDS: D5 1/2NS 1,000 ML IV SCH ×2 (00:14→18:24)
--- NOTE | 2016-05-28 00:58 | Consultation ---
DATE OF CONSULTATION: ADDENDUM The patient's wound at this time were covered. I did not review them. I reviewed surgical notes at this time. We will follow on the wounds. Chavez Stacy M.D. DR: FAROOQ JOB#: [id number] CC:
[2016-05-28 04:00] VITALS: BP 132/78
[2016-05-28] MEDS: Vancomycin 1.5 GM in D5W 300 ML IVPB SCH (05:00)
[2016-05-28] MEDS: PCA shift volume MISC SCH ×3 (07:18→23:23)
[2016-05-28 08:00] VITALS: BP 144/95
--- NOTE | 2016-05-28 09:22 | General Progress Note ---
Progress Note Progress Note Pt seen and examined. POD# 3 from skin graft and closure of wounds. Doing well just needs to have a BM. Will dc dressings on Monday AM. MD RAAD Coyne AMIR May 28, 2016 09:22
[2016-05-28] MEDS: Milk of Magnesia 30ml Ud ORAL SCH (09:28)
[2016-05-28] MEDS: Heparin 5000 units/ml inj SUBQ SCH ×2 (09:36→20:48)
[2016-05-28] MEDS: Silver Sulfadiazine Cream 25gm TOPIC SCH (09:37)
[2016-05-28] MEDS: Ocean Nasal Spray 45ml NASAL SCH ×2 (09:37→20:43)
--- NOTE | 2016-05-28 10:06 | Infectious Diseases Prog Note ---
Assessment/Plan Assessment/Plan A) 1) gram neg uti, + ua, fevers - fevers better 2) coag neg staph/diphtheroids + blood cultures, ? bacteremia, ? contaminant , line new (05/20) 3) bilateral inguinal/mons/vulvar/thigh wound infection/abscess/hidradenitis suppurativa 4) s/p debridement and flaps 5) anemia, keane, constipation, pain mgt 6) allergies - marcin inhibitors, shellfish, strawberries 7) sh-negative, fh-nc, mar noted, notes and records reviewed 8) d/w RN P) 1) vancomycin and rocephin 2) check urine culture final, surveillance bc, chest x-ray and labs 3) continue other treatment per primary and surgery 4) orders entered and noted 5) wound care per surgery 6) d/w patient and sister Subjective Constitutional: Denies: fever Respiratory: Denies: shortness of breath Cardiovascular: Denies: chest pain Gastrointestinal/Abdominal: Denies: diarrhea, nausea, vomiting Genitourinary: Reports: other - + meo Neurologic: Denies: headache Psychiatric: Denies: depression Skin: Denies: rash Hematologic: Denies: bleeding Musculoskeletal: Denies: pain Allergies: Coded Allergies: Dust (Verified Allergy, Mild, 12/30/15) SHELLFISH DERIVED (Unverified Allergy, Mild, 12/30/15) STRAWBERRY (Verified Allergy, Mild, 12/30/15) MARCIN INHIBITORS (Unverified Allergy, Unknown, 12/29/15) Uncoded Allergies: muñoz (Allergy, Mild, 12/30/15) shellfish (Allergy, Mild, 12/30/15) Objective Vital Signs Last 24 Hour Vital Signs Date Time Temp Pulse Resp B/P Pulse Ox O2 Delivery O2 Flow Rate FiO2 05/28/16 08:00 98.7 92 18 144/95 99 Room Air 05/28/16 04:00 98.2 83 18 132/78 99 Room Air 05/28/16 04:00 18 05/28/16 00:00 98.1 89 18 117/71 97 Room Air 05/28/16 00:00 18 05/27/16 20:00 97.7 77 20 128/67 99 Room Air 05/27/16 16:15 98.2 88 20 120/68 99 Room Air 05/27/16 13:52 97.9 05/27/16 12:00 18 05/27/16 12:00 97.9 89 20 124/64 99 Room Air Height (Feet): 5 Height (Inches): 8.00 Weight (Pounds): 292 General Appearance: no acute distress HEENT: normocephalic, atraumatic, anicteric, mucous membranes moist, PERRL, EOMI, pharynx normal, supple, no JVD Respiratory/Chest: lungs clear, normal breath sounds, no respiratory distress Cardiovascular: normal rate, regular rhythm Abdomen: normal bowel sounds, soft, non tender, no organomegaly Genitourinary: other - + moe - urine slt cloudy Extremities: no cyanosis Skin: no rash, other - wounds covered 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, alert, oriented x 3, responsive Lymphatic: no neck adenopathy Musculoskeletal: no effusion Objective Microbiology Date/Time Source Procedure Growth Status 05/25/16 21:47 Blood Blood Culture - Preliminary Staphylococcus Sp Coag Neg Resulted 05/25/16 21:47 Urine,Clean Catch Urine Culture - Preliminary Gram Negative Hank Resulted chest x-ray - pending Microbiology Date/Time Source Procedure Growth Status 05/25/16 21:47 Blood Blood Culture - Preliminary Staphylococcus Sp Coag Neg Resulted 05/25/16 21:47 Blood Blood Culture - Preliminary Staphylococcus Sp Coag Neg Diphtheroids Resulted 05/25/16 21:47 Urine,Clean Catch Urine Culture - Preliminary Gram Negative Hank Resulted Labs Test 05/25/16 21:47 05/26/16 01:00 05/27/16 09:45 05/28/16 04:30 Urine Color Yellow Yellow Urine Appearance Clear Slightly cloudy Urine pH 5 (4.5-8.0) 6 (4.5-8.0) Urine Specific [place] 1.010 (1.005-1.035) 1.010 (1.005-1.035) Urine Protein 1+ (NEGATIVE) 2+ (NEGATIVE) Urine Glucose (UA) Negative (NEGATIVE) Negative (NEGATIVE) Urine Ketones Negative (NEGATIVE) Negative (NEGATIVE) Urine Occult Blood 5+ (NEGATIVE) 5+ (NEGATIVE) Urine Nitrite Positive (NEGATIVE) Negative (NEGATIVE) Urine Bilirubin Negative (NEGATIVE) Negative (NEGATIVE) Urine Urobilinogen Normal MG/DL (0.0-1.0) Normal MG/DL (0.0-1.0) Urine Leukocyte Esterase 3+ (NEGATIVE) 1+ (NEGATIVE) Urine RBC 20-30 /HPF (0 - 2) 20-30 /HPF (0 - 2) Urine WBC 30-40 /HPF (0 - 2) 5-10 /HPF (0 - 2) Urine Squamous Epithelial Cells Few /LPF (NONE/OCC) Few /LPF (NONE/OCC) Urine Bacteria Few /HPF (NONE) Few /HPF (NONE) White Blood Count 9.2 K/UL (4.8-10.8) Red Blood Count 3.88 M/UL (4.20-5.40) Hemoglobin 8.9 G/DL (12.0-16.0) Hematocrit 29.6 % (37.0-47.0) Mean Corpuscular Volume 76 FL (80-99) Mean Corpuscular Hemoglobin 23.1 PG (27.0-31.0) Mean Corpuscular Hemoglobin Concent 30.3 G/DL (32.0-36.0) Red Cell Distribution Width 16.8 % (11.6-14.8) Platelet Count 275 K/UL (150-450) Mean Platelet Volume 6.0 FL (6.5-10.1) Neutrophils (%) (Auto) 76.5 % (45.0-75.0) Lymphocytes (%) (Auto) 11.3 % (20.0-45.0) Monocytes (%) (Auto) 7.4 % (1.0-10.0) Eosinophils (%) (Auto) 3.9 % (0.0-3.0) Basophils (%) (Auto) 1.1 % (0.0-2.0) Vancomycin Level Trough 12.7 ug/mL (5.0-12.0) Laboratory Tests Test 05/28/16 04:30 Vancomycin Level Trough 12.7 ug/mL (5.0-12.0) H Current Medications Medications (Trade) Dose Ordered Sig/Sonya Route PRN Reason Start Time Stop Time Status Last Admin Dose Admin Acetaminophen 650 mg 650 mg Q4H PRN ORAL FEVER 05/25/16 08:00 06/24/16 07:59 05/26/16 09:07 Bisacodyl (Dulcolax) 5 mg DAILYPRN PRN ORAL Constipation 05/24/16 18:30 06/23/16 18:29 Bisacodyl (Dulcolax) 10 mg DAILYPRN PRN RECTAL Constipation 05/28/16 09:15 06/27/16 09:14 05/28/16 09:27 Ceftriaxone Sodium/Dextrose (Rocephin/D5W 50ml) 50 ml @ 100 mls/hr Q24H IVPB 05/26/16 17:00 06/02/16 16:59 05/27/16 19:05 Cetirizine HCl (ZyrTEC) 10 mg DAILY ORAL 05/23/16 12:00 06/22/16 11:59 05/28/16 09:28 Dextrose (Dextrose 50%) STAT PRN IV Hypoglycemia 05/19/16 19:45 06/18/16 19:44 Dextrose/Sodium Chloride (D5 0.45% NS) 1,000 ml @ 75 mls/hr [id number] IV 05/19/16 20:39 06/18/16 20:38 05/28/16 00:14 Diphenhydramine HCl 25 mg 25 mg Q6H PRN IVP Itching 05/26/16 18:00 06/25/16 17:59 Heparin Sodium (Porcine) (Heparin 5000 units/ml) 5,000 units EVERY 12 HOURS SUBQ 05/25/16 21:00 06/24/16 20:59 05/28/16 09:36 Hydromorphone HCl (Dilaudid) 2 mg Q3H PRN SUBQ Severe Pain (Pain Scale 7-10) 05/27/16 12:00 05/29/16 11:59 Hydromorphone HCl (Dilaudid) 2 mg Q4H PRN IVP Moderate Pain (Pain Scale 4-6) 05/27/16 12:00 05/29/16 11:59 Hydromorphone HCl (GRAIN OILSEED OR PASTURE FARM MANAGER Dilaudid) 30 ml @ 0 mls/hr Q24H PRN IV For Pain 05/27/16 12:00 05/29/16 11:59 05/27/16 13:24 Magnesium Hydroxide (Mom) 30 ml DAILY ORAL 05/23/16 12:00 06/22/16 11:59 05/28/16 09:28 Miscellaneous Medication (GRAIN OILSEED OR PASTURE FARM MANAGER Rate Change) 1 ea DAILY PRN MISC GRAIN OILSEED OR PASTURE FARM MANAGER RATE CHANGE 05/27/16 10:45 05/29/16 10:44 Miscellaneous Medication (GRAIN OILSEED OR PASTURE FARM MANAGER shift volume) 1 ea Q8HR@07,15,23 MISC 05/27/16 15:00 05/29/16 14:59 05/28/16 07:18 Naloxone HCl (Narcan) 0.1 mg PRN IV . 05/25/16 12:00 05/29/16 11:59 Ondansetron HCl (Zofran) 4 mg Q6H PRN IVP Nausea & Vomiting 05/25/16 08:00 06/24/16 07:59 Silver Sulfadiazine (Silvadene Cream 25gm) 1 applic DAILY TOPIC 05/24/16 20:00 06/23/16 19:59 05/28/16 09:37 Sodium Chloride ([place] Nasal [place]) 1 spray Q12HR NASAL 05/24/16 09:00 06/23/16 08:59 05/28/16 09:37 Vancomycin HCl (Vanco rx to dose) 1 ea DAILY PRN MISC . 05/26/16 16:00 06/25/16 15:59 Zolpidem Tartrate (Ambien) 5 mg DAILYPRN PRN ORAL Insomnia 05/25/16 08:00 06/24/16 07:59 SANDEEP WALLS May 28, 2016 10:06
--- NOTE | 2016-05-28 10:40 | Diagnostic Imaging Report ---
Indication: Shortness of breath Technique: One view of the chest Comparison: 05/19/2016 Findings: Lungs and pleural spaces are clear. Heart size is upper limits normal. No significant change Impression: No acute process
--- NOTE | 2016-05-28 10:48 | General Progress Note ---
Assessment/Plan Problem List: (1) Abscess ICD Codes: L02.91 - Cutaneous abscess, unspecified SNOMED: 664612976 (2) Inguinal abscess ICD Codes: L02.214 - Cutaneous abscess of groin SNOMED: 63694063 (3) Hidradenitis ICD Codes: L73.2 - Hidradenitis suppurativa SNOMED: 43648274 (4) Microcytic anemia ICD Codes: D50.9 - Iron deficiency anemia, unspecified SNOMED: 218729334 (5) Constipation ICD Codes: K59.00 - Constipation, unspecified SNOMED: 90001598 (6) Headache ICD Codes: R51 - Headache SNOMED: 67959672 Assessment/Plan IV abx, Cefazolin-->Vanc+Ceftriaxone f/u blood cx 2/2 GPC in clusters and GNR: coag neg staph and diptheroids-- likely skin genesis contaminants; u cx with GNR, f/u ID c/s'd ID, appreciate recs Pain control H and H stable Supp care Wound care s/p Debridement of bilateral groin,thighs,lower abdomen, and vulva POD 7 s/p wound closure increase bowel regimen tylenol for JEROME and f/c IC heparin dvt ppx PT Time spent on case: 45 minutes with 28 mins dedicated to care coordination and counseling Subjective Date patient seen: May 28, 2016 Time patient seen: 10:46 Allergies: Coded Allergies: Dust (Verified Allergy, Mild, 12/30/15) SHELLFISH DERIVED (Unverified Allergy, Mild, 12/30/15) STRAWBERRY (Verified Allergy, Mild, 12/30/15) MARCIN INHIBITORS (Unverified Allergy, Unknown, 12/29/15) Uncoded Allergies: muñoz (Allergy, Mild, 12/30/15) shellfish (Allergy, Mild, 12/30/15) Subjective subjective f/c resolved Objective Last 24 Hour Vital Signs Date Time Temp Pulse Resp B/P Pulse Ox O2 Delivery O2 Flow Rate FiO2 05/28/16 08:00 18 05/28/16 08:00 98.7 92 18 144/95 99 Room Air 05/28/16 04:00 98.2 83 18 132/78 99 Room Air 05/28/16 04:00 18 05/28/16 00:00 98.1 89 18 117/71 97 Room Air 05/28/16 00:00 18 12/30/16 20:00 97.7 77 20 128/67 99 Room Air 05/27/16 16:15 98.2 88 20 120/68 99 Room Air 05/27/16 13:52 97.9 05/27/16 12:00 18 05/27/16 12:00 97.9 89 20 124/64 99 Room Air Intake and Output 05/27/16 05/28/16 19:00 07:00 Intake Total 2615 ml 1815 ml Output Total 1213 ml 2852 ml Balance 1402 ml -1037 ml Intake Oral 1640 ml 1040 ml IV Total 975 ml 775 ml Output Urine Total 1200 ml 2825 ml Drainage Total 13 ml 27 ml Laboratory Tests 05/28/16 04:30: Vancomycin Level Trough 12.7H Height (Feet): 5 Height (Inches): 8.00 Weight (Pounds): 292 Objective General Appearance: WD/WN, in mild distress EENT: PERRL/EOMI, normal ENT inspection Neck: non-tender, normal alignment Cardiovascular: normal peripheral pulses, normal rate Respiratory/Chest: chest wall non-tender, lungs clear Abdomen: normal bowel sounds, non tender Extremities: normal range of motion Edema: no edema noted Arm (L), no edema noted Arm (R), no edema noted Leg (L), no edema noted Leg (R), no edema noted Pedal (L), no edema noted Pedal (R), no edema noted 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 May 28, 2016 10:48
[2016-05-28 12:00] VITALS: BP 136/84
[2016-05-28] MEDS ORDERED: PCA HYDROmorphone 1mg/ml 30 ML IV PRN (13:00)
[2016-05-28] MEDS ORDERED: Rate Change PCA 1 Each MISC PRN (13:00)
[2016-05-28] MEDS: Pericolace tab ORAL SCH ×2 (13:21→17:52)
[2016-05-28] MEDS: Vancomycin 1gm/D5W 250ml IVPB SCH ×4 (13:21→22:05)
[2016-05-28 16:00] VITALS: BP 139/84
[2016-05-28] MEDS: cefTRIAXone 1 GM in D5W 50 ML IVPB SCH (17:03)
[2016-05-28] MEDS ORDERED: D5 1/2NS 1000ml IV ONE ×2 (17:12→18:23)
[2016-05-28] MEDS ORDERED: Tubing IV Secondary IV ONE (18:23)
[2016-05-28 20:00] VITALS: BP 125/75
[2016-05-29 00:47] VITALS: BP 122/73
[2016-05-29 04:00] VITALS: BP 127/81
[2016-05-29] MEDS: Vancomycin 1gm/D5W 250ml IVPB SCH ×4 (06:29→07:10)
[2016-05-29 06:58] LABS: BASOPHILS % (AUTO) 2.2 % (0.0-2.0); EOSINOPHILS % (AUTO) 6.8 % (0.0-3.0); LYMPHOCYTES % (AUTO) 16.8 % (20.0-45.0); MEAN CORPUSCULAR HEMOGLOBIN 22.9 PG (27.0-31.0); MEAN CORPUSCULAR VOLUME 76 FL (80-99); MEAN PLATELET VOLUME 5.2 FL (6.5-10.1); MONOCYTES % (AUTO) 6.7 % (1.0-10.0); NEUTROPHILS % (AUTO) 67.5 % (45.0-75.0); PLATELET COUNT 291 K/UL (150-450); RED BLOOD COUNT 4.11 M/UL (4.20-5.40); RED CELL DISTRIBUTION WIDTH 17.2 % (11.6-14.8); WHITE BLOOD COUNT 7.1 K/UL (4.8-10.8)
[2016-05-29 07:04] LABS: ANION GAP 11 (5-15); CALCIUM 8.8 mg/dL (8.6-10.2); CARBON DIOXIDE 28 mEQ/L (20-30); CHLORIDE 101 mEQ/L (98-107); CREATININE 0.6 mg/dL (0.5-0.9); GLOMERULAR FILTRATION RATE > 60 mL/min (>60); HEMOLYSIS 1; POTASSIUM 4.6 mEQ/L (3.4-4.9); SODIUM 140 mEQ/L (135-145)
[2016-05-29] MEDS: PCA shift volume MISC SCH ×3 (07:12→23:20)
[2016-05-29 08:00] VITALS: BP 121/71
[2016-05-29] MEDS: Ocean Nasal Spray 45ml NASAL SCH ×2 (09:35→20:15)
[2016-05-29] MEDS: Pericolace tab ORAL SCH ×2 (09:35→17:19)
[2016-05-29] MEDS: Milk of Magnesia 30ml Ud ORAL SCH (09:35)
[2016-05-29] MEDS: Silver Sulfadiazine Cream 25gm TOPIC SCH (09:36)
[2016-05-29] MEDS: Heparin 5000 units/ml inj SUBQ SCH ×2 (09:45→20:17)
[2016-05-29] MEDS: D5 1/2NS 1,000 ML IV SCH (09:47)
--- NOTE | 2016-05-29 10:15 | General Progress Note ---
Assessment/Plan Problem List: (1) Abscess ICD Codes: L02.91 - Cutaneous abscess, unspecified SNOMED: 202364744 (2) Inguinal abscess ICD Codes: L02.214 - Cutaneous abscess of groin SNOMED: 19525809 (3) Hidradenitis ICD Codes: L73.2 - Hidradenitis suppurativa SNOMED: 89244778 (4) Microcytic anemia ICD Codes: D50.9 - Iron deficiency anemia, unspecified SNOMED: 545270444 (5) Constipation ICD Codes: K59.00 - Constipation, unspecified SNOMED: 46164814 (6) Headache ICD Codes: R51 - Headache SNOMED: 02136449 Assessment/Plan IV abx, Cefazolin-->Vanc+Ceftriaxone-->Ceftriaxone (DC Vanc since no MRSA) f/u blood cx 2/2 GPC in clusters and GNR: coag neg staph and diptheroids-- likely skin genesis contaminants; u cx with GNR, f/u ID c/s'd ID, appreciate recs Pain control H and H stable Supp care Wound care s/p Debridement of bilateral groin,thighs,lower abdomen, and vulva POD 8 s/p wound closure increase bowel regimen tylenol for JEROME and f/c IC heparin dvt ppx PT Time spent on case: 45 minutes with 28 mins dedicated to care coordination and counseling Subjective Date patient seen: May 29, 2016 Time patient seen: 10:14 Allergies: Coded Allergies: Dust (Verified Allergy, Mild, 12/30/15) SHELLFISH DERIVED (Unverified Allergy, Mild, 12/30/15) STRAWBERRY (Verified Allergy, Mild, 12/30/15) MARCIN INHIBITORS (Unverified Allergy, Unknown, 12/29/15) Uncoded Allergies: muñoz (Allergy, Mild, 12/30/15) shellfish (Allergy, Mild, 12/30/15) Subjective subjective f/c resolved Objective Last 24 Hour Vital Signs Date Time Temp Pulse Resp B/P Pulse Ox O2 Delivery O2 Flow Rate FiO2 05/29/16 08:00 18 05/29/16 08:00 97.3 84 20 121/71 99 Room Air 05/29/16 04:00 98.2 81 20 127/81 97 Room Air 05/29/16 04:00 16 05/29/16 00:47 98.1 82 19 122/73 97 Room Air 05/29/16 00:00 16 05/28/16 20:00 98.1 86 17 125/75 95 Room Air 05/28/16 19:59 16 05/28/16 16:15 16 05/28/16 16:00 98.2 91 20 139/84 97 Room Air 05/28/16 12:00 18 05/28/16 12:00 97.9 110 18 136/84 98 Room Air Intake and Output 05/28/16 05/29/16 19:00 07:00 Intake Total 1317 ml 1892 ml Output Total 1932 ml 5290 ml Balance -615 ml -3398 ml Intake Oral 500 ml 860 ml IV Total 817 ml 1032 ml Output Urine Total 1900 ml 5250 ml Drainage Total 32 ml 40 ml # Bowel Movements 1 Laboratory Tests 05/29/16 05:45: White Blood Count 7.1, Red Blood Count 4.11L, Hemoglobin 9.4L, Hematocrit 31.3L , Mean Corpuscular Volume 76L, Mean Corpuscular Hemoglobin 22.9L, Mean Corpuscular Hemoglobin Concent 30.0L, Red Cell Distribution Width 17.2H, Platelet Count 291, Mean Platelet Volume 5.2L, Neutrophils (%) (Auto) 67.5, Lymphocytes (%) (Auto) 16.8L, Monocytes (%) (Auto) 6.7, Eosinophils (%) (Auto) 6.8H, Basophils (%) (Auto) 2.2H, Sodium Level 140, Potassium Level 4.6, Chloride Level 101, Carbon Dioxide Level 28, Anion Gap 11, Blood Urea Nitrogen 6L, Creatinine 0.6, Estimat Glomerular Filtration Rate > 60, Glucose Level 107H , Calcium Level 8.8 Height (Feet): 5 Height (Inches): 8.00 Weight (Pounds): 292 Objective General Appearance: WD/WN, in mild distress EENT: PERRL/EOMI, normal ENT inspection Neck: non-tender, normal alignment Cardiovascular: normal peripheral pulses, normal rate Respiratory/Chest: chest wall non-tender, lungs clear Abdomen: normal bowel sounds, non tender Extremities: normal range of motion Edema: no edema noted Arm (L), no edema noted Arm (R), no edema noted Leg (L), no edema noted Leg (R), no edema noted Pedal (L), no edema noted Pedal (R), no edema noted 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 May 29, 2016 10:15
[2016-05-29 12:00] VITALS: BP 121/77
[2016-05-29] MEDS ORDERED: Rate Change PCA 1 Each MISC PRN (12:00)
--- NOTE | 2016-05-29 13:16 | Infectious Diseases Prog Note ---
Assessment/Plan Assessment/Plan A) 1) pseudomonas and enterobacter uti 2) 2/ coag neg staph/diphtheroids + blood cultures - likely contaminant, f/ u bc negative 3) bilateral inguinal/mons/vulvar/thigh wound infection/abscess/hidradenitis suppurativa 4) s/p debridement and flaps 5) anemia, keane, constipation, pain mgt 6) allergies - marcin inhibitors, shellfish, strawberries 7) sh-negative, fh-nc, mar noted, notes and records reviewed 8) d/w RN P) 1) start cefepime, discontinue vancomycin and discontinue ceftriaxone 2) treat uti for 7 days, can change to po cipro upon discharge 3) continue other treatment per primary and surgery 4) orders entered and noted 5) wound care per surgery 6) d/w patient and sister Subjective Constitutional: Denies: fever HEENT: Denies: congestion Respiratory: Denies: shortness of breath Cardiovascular: Denies: chest pain Gastrointestinal/Abdominal: Denies: diarrhea, nausea, vomiting Genitourinary: Reports: other - + moe Neurologic: Denies: headache Psychiatric: Denies: depression Skin: Denies: rash Hematologic: Denies: bleeding Musculoskeletal: Denies: pain Allergies: Coded Allergies: Dust (Verified Allergy, Mild, 12/30/15) SHELLFISH DERIVED (Unverified Allergy, Mild, 12/30/15) STRAWBERRY (Verified Allergy, Mild, 12/30/15) MARCIN INHIBITORS (Unverified Allergy, Unknown, 12/29/15) Uncoded Allergies: muñoz (Allergy, Mild, 12/30/15) shellfish (Allergy, Mild, 12/30/15) Objective Vital Signs Last 24 Hour Vital Signs Date Time Temp Pulse Resp B/P Pulse Ox O2 Delivery O2 Flow Rate FiO2 05/29/16 08:00 18 05/29/16 08:00 97.3 84 20 121/71 99 Room Air 05/29/16 04:00 98.2 81 20 127/81 97 Room Air 05/29/16 04:00 16 05/29/16 00:47 98.1 82 19 122/73 97 Room Air 05/29/16 00:00 16 05/28/16 20:00 98.1 86 17 125/75 95 Room Air 05/28/16 19:59 16 12/31/16 16:15 16 05/28/16 16:00 98.2 91 20 139/84 97 Room Air Height (Feet): 5 Height (Inches): 8.00 Weight (Pounds): 292 General Appearance: no acute distress HEENT: normocephalic, atraumatic, anicteric, mucous membranes moist, PERRL, EOMI, pharynx normal, supple, no JVD Respiratory/Chest: lungs clear, normal breath sounds, no respiratory distress, no accessory muscle use Cardiovascular: normal rate, regular rhythm, no gallop/murmur, no JVD Abdomen: normal bowel sounds, soft, non tender, no organomegaly, non distended Genitourinary: other - + moe - urine slt cloudy Extremities: no cyanosis Skin: no rash Neurologic/Psychiatric: jackaroo II-XII grossly normal, alert, oriented x 3, responsive Lymphatic: no neck adenopathy Musculoskeletal: no effusion Objective Microbiology Date/Time Source Procedure Growth Status 05/25/16 21:47 Blood Blood Culture - Preliminary Staphylococcus Sp Coag Neg Resulted 05/25/16 21:47 Urine,Clean Catch Urine Culture - Preliminary Gram Negative Hank Resulted chest x-ray - negative, nad Microbiology Date/Time Source Procedure Growth Status 05/28/16 04:30 Blood Blood Culture - Preliminary NO GROWTH AFTER 24 HOURS Resulted 05/25/16 21:47 Urine,Clean Catch Urine Culture - Final Pseudomonas Aeruginosa Enterobacter Aerogenes Complete Microbiology Date/Time Source Procedure Growth Status 05/28/16 04:30 Blood Blood Culture - Preliminary NO GROWTH AFTER 24 HOURS Resulted Laboratory Tests Test 05/29/16 05:45 White Blood Count 7.1 K/UL (4.8-10.8) Red Blood Count 4.11 M/UL (4.20-5.40) L Hemoglobin 9.4 G/DL (12.0-16.0) L Hematocrit 31.3 % (37.0-47.0) L Mean Corpuscular Volume 76 FL (80-99) L Mean Corpuscular Hemoglobin 22.9 PG (27.0-31.0) L Mean Corpuscular Hemoglobin Concent 30.0 G/DL (32.0-36.0) L Red Cell Distribution Width 17.2 % (11.6-14.8) H Platelet Count 291 K/UL (150-450) Mean Platelet Volume 5.2 FL (6.5-10.1) L Neutrophils (%) (Auto) 67.5 % (45.0-75.0) Lymphocytes (%) (Auto) 16.8 % (20.0-45.0) L Monocytes (%) (Auto) 6.7 % (1.0-10.0) Eosinophils (%) (Auto) 6.8 % (0.0-3.0) H Basophils (%) (Auto) 2.2 % (0.0-2.0) H Sodium Level 140 mEQ/L (135-145) Potassium Level 4.6 mEQ/L (3.4-4.9) Chloride Level 101 mEQ/L (98-107) Carbon Dioxide Level 28 mEQ/L (20-30) Anion Gap 11 (5-15) Blood Urea Nitrogen 6 mg/dL (7-23) L Creatinine 0.6 mg/dL (0.5-0.9) Estimat Glomerular Filtration Rate > 60 mL/min (>60) Glucose Level 107 mg/dL (74-106) H Calcium Level 8.8 mg/dL (8.6-10.2) Current Medications Medications (Trade) Dose Ordered Sig/Sonya Route PRN Reason Start Time Stop Time Status Last Admin Dose Admin Acetaminophen 650 mg 650 mg Q4H PRN ORAL FEVER 05/25/16 08:00 06/24/16 07:59 05/26/16 09:07 Bisacodyl (Dulcolax) 5 mg DAILYPRN PRN ORAL Constipation 05/24/16 18:30 06/23/16 18:29 Bisacodyl (Dulcolax) 10 mg DAILYPRN PRN RECTAL Constipation 05/28/16 09:15 06/27/16 09:14 05/28/16 09:27 Ceftriaxone Sodium/Dextrose (Rocephin/D5W 50ml) 50 ml @ 100 mls/hr Q24H IVPB 05/26/16 17:00 06/02/16 16:59 05/28/16 17:03 Cetirizine HCl (ZyrTEC) 10 mg DAILY ORAL 05/23/16 12:00 06/22/16 11:59 05/29/16 09:35 Dextrose (Dextrose 50%) STAT PRN IV Hypoglycemia 05/19/16 19:45 06/18/16 19:44 Diphenhydramine HCl (Benadryl) 25 mg Q6H PRN IVP Itching 05/26/16 18:00 06/25/16 17:59 Heparin Sodium (Porcine) (Heparin 5000 units/ml) 5,000 units EVERY 12 HOURS SUBQ 05/25/16 21:00 06/24/16 20:59 05/29/16 09:45 Hydromorphone HCl (Dilaudid) 2 mg Q3H PRN SUBQ Severe Breakthru Pain (>7) 05/29/16 12:48 05/31/16 11:59 Hydromorphone HCl (Dilaudid) 2 mg Q4H PRN IVP Moderate Breakthru Pain (5-7) 05/29/16 12:48 05/31/16 11:59 Hydromorphone HCl (RUNNING INSTRUCTOR Dilaudid) 30 ml @ 0 mls/hr Q24H PRN IV For Pain 05/29/16 12:00 05/31/16 11:59 Magnesium Hydroxide (Mom) 30 ml DAILY ORAL 05/23/16 12:00 06/22/16 11:59 05/29/16 09:35 Miscellaneous Medication (RUNNING INSTRUCTOR Rate Change) 1 ea DAILY PRN MISC RUNNING INSTRUCTOR RATE CHANGE 05/29/16 12:00 05/31/16 11:59 Miscellaneous Medication (RUNNING INSTRUCTOR shift volume) 1 ea Q8HR@07,15,23 MISC 05/29/16 15:00 05/31/16 14:59 Naloxone HCl (Narcan) 0.1 mg PRN IV . 05/25/16 12:00 05/31/16 12:00 Ondansetron HCl (Zofran) 4 mg Q6H PRN IVP Nausea & Vomiting 05/25/16 08:00 06/24/16 07:59 Senna/Docusate Sodium 1 ea 1 ea TWICE A DAY ORAL 05/28/16 12:00 06/27/16 11:59 05/29/16 09:35 Silver Sulfadiazine (Silvadene Cream 25gm) 1 applic DAILY TOPIC 05/24/16 20:00 06/23/16 19:59 05/29/16 09:36 Sodium Chloride ([place] Nasal [place]) 1 spray Q12HR NASAL 05/24/16 09:00 06/23/16 08:59 05/29/16 09:35 Zolpidem Tartrate (Ambien) 5 mg DAILYPRN PRN ORAL Insomnia 05/25/16 08:00 06/24/16 07:59 SANDEEP WALLS May 29, 2016 13:16
[2016-05-29] MEDS: PCA HYDROmorphone 1mg/ml 30 ML IV PRN (13:34)
[2016-05-29 16:22] VITALS: BP 125/74
[2016-05-29 20:33] VITALS: BP 118/64
[2016-05-30] VITALS: BP 122/71
[2016-05-30 04:00] VITALS: BP 141/74
[2016-05-30] MEDS: PCA shift volume MISC SCH ×3 (07:23→23:27)
[2016-05-30 08:00] VITALS: BP 135/75
[2016-05-30] MEDS: Milk of Magnesia 30ml Ud ORAL SCH (08:49)
[2016-05-30] MEDS: Ocean Nasal Spray 45ml NASAL SCH ×2 (08:50→20:42)
[2016-05-30] MEDS: Silver Sulfadiazine Cream 25gm TOPIC SCH (08:50)
[2016-05-30] MEDS: Pericolace tab ORAL SCH ×2 (08:51→17:57)
[2016-05-30] MEDS: Heparin 5000 units/ml inj SUBQ SCH ×2 (08:58→20:45)
--- NOTE | 2016-05-30 10:21 | General Progress Note ---
Assessment/Plan Problem List: (1) Abscess ICD Codes: L02.91 - Cutaneous abscess, unspecified SNOMED: 125023812 (2) Inguinal abscess ICD Codes: L02.214 - Cutaneous abscess of groin SNOMED: 58388277 (3) Hidradenitis ICD Codes: L73.2 - Hidradenitis suppurativa SNOMED: 51741404 (4) Microcytic anemia ICD Codes: D50.9 - Iron deficiency anemia, unspecified SNOMED: 874768504 (5) Constipation ICD Codes: K59.00 - Constipation, unspecified SNOMED: 88926405 (6) Headache ICD Codes: R51 - Headache SNOMED: 24661916 (7) Infection due to Enterobacter aerogenes ICD Codes: A49.8 - Other bacterial infections of unspecified site SNOMED: 15389485, 079330430 (8) Pseudomonas urinary tract infection ICD Codes: N39.0 - Urinary tract infection, site not specified; B96.5 - Pseudomonas (aeruginosa) (mallei) (pseudomallei) as the cause of diseases classified elsewhere SNOMED: 625970411, 655109274678579 Assessment/Plan IV abx, Cefazolin-->Vanc+Ceftriaxone-->Ceftriaxone (DC Vanc since no MRSA)--> Ceftaroline f/u blood cx 2/2 GPC in clusters and GNR: coag neg staph and diptheroids-- likely skin genesis contaminants u cx with GNR, Enterobacter and Pseudomonas repeat bl cx ntd x 2 c/s'd ID, appreciate recs Pain control H and H stable Supp care Wound care s/p Debridement of bilateral groin,thighs,lower abdomen, and vulva POD 9 s/p wound closure pt to have dressing take down today with surgery increase bowel regimen tylenol for JEROME and f/c IC heparin dvt ppx PT ambulate Time spent on case: 45 minutes with 28 mins dedicated to care coordination and counseling Subjective Date patient seen: May 30, 2016 Time patient seen: 10:18 Allergies: Coded Allergies: Dust (Verified Allergy, Mild, 12/30/15) SHELLFISH DERIVED (Unverified Allergy, Mild, 12/30/15) STRAWBERRY (Verified Allergy, Mild, 12/30/15) MARCIN INHIBITORS (Unverified Allergy, Unknown, 12/29/15) Uncoded Allergies: muñoz (Allergy, Mild, 12/30/15) shellfish (Allergy, Mild, 12/30/15) Subjective subjective f/c resolved; +BM; not ambulating Objective Last 24 Hour Vital Signs Date Time Temp Pulse Resp B/P Pulse Ox O2 Delivery O2 Flow Rate FiO2 05/30/16 08:00 97.7 78 18 135/75 95 Room Air 05/30/16 08:00 18 05/30/16 04:00 97.9 85 18 141/74 97 Room Air 05/30/16 04:00 18 05/30/16 00:00 18 05/30/16 00:00 97.5 78 18 122/71 99 Room Air 05/29/16 20:33 97.3 79 19 118/64 97 Room Air 05/29/16 20:00 18 05/29/16 16:22 97.7 90 18 125/74 100 Room Air 05/29/16 16:00 18 05/29/16 12:00 18 05/29/16 12:00 97.6 84 20 121/77 99 Room Air Intake and Output 05/29/16 05/30/16 19:00 07:00 Intake Total 400 ml 400 ml Output Total 1914 ml 1550 ml Balance -1514 ml -1150 ml Intake Oral 400 ml 400 ml Output Urine Total 1900 ml 1500 ml Drainage Total 14 ml 50 ml # Bowel Movements 1 Height (Feet): 5 Height (Inches): 8.00 Weight (Pounds): 292 Objective General Appearance: WD/WN, in mild distress EENT: PERRL/EOMI, normal ENT inspection Neck: non-tender, normal alignment Cardiovascular: normal peripheral pulses, normal rate Respiratory/Chest: chest wall non-tender, lungs clear Abdomen: normal bowel sounds, non tender Extremities: normal range of motion Edema: no edema noted Arm (L), no edema noted Arm (R), no edema noted Leg (L), no edema noted Leg (R), no edema noted Pedal (L), no edema noted Pedal (R), no edema noted 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 May 30, 2016 10:21
--- NOTE | 2016-05-30 10:50 | General Progress Note ---
Progress Note Progress Note Pt seen and examined. POD # 5 and all dressings taken down. Wounds are healing and graft suture line in tact and appears to be taking. Urine culture + and so will need to DC moe and start on different abx. Plan on dc home soon likely Wed AM. ONEIDA Carter MD May 30, 2016 10:50
[2016-05-30 12:00] VITALS: BP 134/82
[2016-05-30] MEDS: PCA HYDROmorphone 1mg/ml 30 ML IV PRN (12:51)
[2016-05-30 16:15] VITALS: BP 120/72
[2016-05-30 20:32] VITALS: BP 109/58
[2016-05-31] VITALS: BP 131/74
[2016-05-31 04:00] VITALS: BP 127/73
[2016-05-31] MEDS: PCA shift volume MISC SCH (07:13)
[2016-05-31 07:38] VITALS: BP 116/74
[2016-05-31] MEDS: Ocean Nasal Spray 45ml NASAL SCH ×2 (08:24→21:33)
[2016-05-31] MEDS: Pericolace tab ORAL SCH ×2 (08:24→17:43)
[2016-05-31] MEDS: Milk of Magnesia 30ml Ud ORAL SCH (08:24)
[2016-05-31] MEDS: Heparin 5000 units/ml inj SUBQ SCH ×2 (08:31→21:34)
[2016-05-31 11:50] VITALS: BP 131/82
--- NOTE | 2016-05-31 13:48 | Infectious Diseases Prog Note ---
Assessment/Plan Assessment/Plan A) 1) pseudomonas and enterobacter uti 2) 2/ coag neg staph/diphtheroids + blood cultures - likely contaminant, f/ u bc negative 3) bilateral inguinal/mons/vulvar/thigh wound infection/abscess/hidradenitis suppurativa 4) s/p debridement and flaps 5) anemia, keane, constipation, pain mgt 6) allergies - marcin inhibitors, shellfish, strawberries 7) sh-negative, fh-nc, mar noted, notes and records reviewed 8) d/w RN P) 1) start cefepime - day # 3/7 abx 2) can change to po cipro for remainder of abx course upon discharge 3) continue other treatment per primary and surgery 4) orders entered and noted 5) wound care per surgery, wounds healing per surgery notes 6) d/w patient and sister Subjective Constitutional: Denies: fever HEENT: Denies: congestion Respiratory: Denies: shortness of breath Cardiovascular: Denies: chest pain Gastrointestinal/Abdominal: Denies: diarrhea, nausea, vomiting Genitourinary: Denies: dysuria, frequency, hematuria Psychiatric: Denies: depression Skin: Denies: rash Hematologic: Denies: bleeding Musculoskeletal: Denies: pain Allergies: Coded Allergies: Dust (Verified Allergy, Mild, 12/30/15) SHELLFISH DERIVED (Unverified Allergy, Mild, 12/30/15) STRAWBERRY (Verified Allergy, Mild, 12/30/15) MARCIN INHIBITORS (Unverified Allergy, Unknown, 12/29/15) Uncoded Allergies: muñoz (Allergy, Mild, 12/30/15) shellfish (Allergy, Mild, 12/30/15) Objective Vital Signs Last 24 Hour Vital Signs Date Time Temp Pulse Resp B/P Pulse Ox O2 Delivery O2 Flow Rate FiO2 05/31/16 11:50 97.5 77 20 131/82 97 Room Air 05/31/16 08:00 18 05/31/16 07:38 97.9 82 20 116/74 100 Room Air 05/31/16 04:00 18 05/31/16 04:00 97.9 84 18 127/73 99 Room Air 05/31/16 00:00 20 05/31/16 00:00 97.5 98 20 131/74 98 Room Air 05/30/16 20:32 97.9 87 19 109/58 96 Room Air 05/30/16 20:00 18 05/30/16 16:15 97.7 73 18 120/72 96 Room Air 05/30/16 16:00 18 Height (Feet): 5 Height (Inches): 8.00 Weight (Pounds): 292 General Appearance: no acute distress HEENT: normocephalic, atraumatic, anicteric, mucous membranes moist, PERRL, EOMI, pharynx normal, supple, no JVD Respiratory/Chest: lungs clear, normal breath sounds, no respiratory distress, no accessory muscle use Cardiovascular: normal rate, regular rhythm, no gallop/murmur, no JVD Abdomen: normal bowel sounds, soft, non tender, no organomegaly, non distended Genitourinary: other - no moe Extremities: no cyanosis Skin: no rash, other - wounds covered - surgery note reviewed 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, alert, oriented x 3, responsive Lymphatic: no neck adenopathy Musculoskeletal: no effusion Objective Microbiology Date/Time Source Procedure Growth Status 05/25/16 21:47 Blood Blood Culture - Preliminary Staphylococcus Sp Coag Neg Resulted 05/25/16 21:47 Urine,Clean Catch Urine Culture - Preliminary Gram Negative Hank Resulted chest x-ray - negative, nad Microbiology Date/Time Source Procedure Growth Status 05/28/16 08:00 Blood Blood Culture - Preliminary NO GROWTH AFTER 48 HOURS Resulted 05/25/16 21:47 Urine,Clean Catch Urine Culture - Final Pseudomonas Aeruginosa Enterobacter Aerogenes Complete Labs Test 05/29/16 05:45 White Blood Count 7.1 K/UL (4.8-10.8) Red Blood Count 4.11 M/UL (4.20-5.40) Hemoglobin 9.4 G/DL (12.0-16.0) Hematocrit 31.3 % (37.0-47.0) Mean Corpuscular Volume 76 FL (80-99) Mean Corpuscular Hemoglobin 22.9 PG (27.0-31.0) Mean Corpuscular Hemoglobin Concent 30.0 G/DL (32.0-36.0) Red Cell Distribution Width 17.2 % (11.6-14.8) Platelet Count 291 K/UL (150-450) Mean Platelet Volume 5.2 FL (6.5-10.1) Neutrophils (%) (Auto) 67.5 % (45.0-75.0) Lymphocytes (%) (Auto) 16.8 % (20.0-45.0) Monocytes (%) (Auto) 6.7 % (1.0-10.0) Eosinophils (%) (Auto) 6.8 % (0.0-3.0) Basophils (%) (Auto) 2.2 % (0.0-2.0) Sodium Level 140 mEQ/L (135-145) Potassium Level 4.6 mEQ/L (3.4-4.9) Chloride Level 101 mEQ/L (98-107) Carbon Dioxide Level 28 mEQ/L (20-30) Anion Gap 11 (5-15) Blood Urea Nitrogen 6 mg/dL (7-23) Creatinine 0.6 mg/dL (0.5-0.9) Estimat Glomerular Filtration Rate > 60 mL/min (>60) Glucose Level 107 mg/dL (74-106) Calcium Level 8.8 mg/dL (8.6-10.2) Current Medications Medications (Trade) Dose Ordered Sig/Sonya Route PRN Reason Start Time Stop Time Status Last Admin Dose Admin Acetaminophen (Tylenol) 650 mg Q4H PRN ORAL FEVER 05/25/16 08:00 06/24/16 07:59 05/26/16 09:07 Bisacodyl (Dulcolax) 5 mg DAILYPRN PRN ORAL Constipation 05/24/16 18:30 06/23/16 18:29 Bisacodyl (Dulcolax) 10 mg DAILYPRN PRN RECTAL Constipation 05/28/16 09:15 06/27/16 09:14 05/28/16 09:27 Cefepime HCl/ Dextrose (Maxipime/D5W 50ml) 50 ml @ 100 mls/hr Q12HR IVPB 05/29/16 21:00 06/05/16 20:59 05/31/16 08:24 Cetirizine HCl (ZyrTEC) 10 mg DAILY ORAL 05/23/16 12:00 06/22/16 11:59 05/31/16 08:26 Dextrose (Dextrose 50%) STAT PRN IV Hypoglycemia 05/19/16 19:45 06/18/16 19:44 Diphenhydramine HCl (Benadryl) 25 mg Q6H PRN IVP Itching 05/26/16 18:00 06/25/16 17:59 Heparin Sodium (Porcine) (Heparin 5000 units/ml) 5,000 units EVERY 12 HOURS SUBQ 05/25/16 21:00 06/24/16 20:59 05/31/16 08:31 Magnesium Hydroxide (Mom) 30 ml DAILY ORAL 05/23/16 12:00 06/22/16 11:59 05/31/16 08:24 Ondansetron HCl (Zofran) 4 mg Q6H PRN IVP Nausea & Vomiting 05/25/16 08:00 06/24/16 07:59 Senna/Docusate Sodium 1 ea 1 ea TWICE A DAY ORAL 05/28/16 12:00 06/27/16 11:59 05/31/16 08:24 Sodium Chloride ([place] Nasal [place]) 1 spray Q12HR NASAL 05/24/16 09:00 06/23/16 08:59 05/31/16 08:24 Zolpidem Tartrate (Ambien) 5 mg DAILYPRN PRN ORAL Insomnia 05/25/16 08:00 06/24/16 07:59 SANDEEP WALLS May 31, 2016 13:48
[2016-05-31 16:00] VITALS: BP 131/69
--- NOTE | 2016-05-31 19:01 | General Progress Note ---
Assessment/Plan Problem List: (1) Abscess ICD Codes: L02.91 - Cutaneous abscess, unspecified SNOMED: 774930267 (2) Inguinal abscess ICD Codes: L02.214 - Cutaneous abscess of groin SNOMED: 96881464 (3) Hidradenitis ICD Codes: L73.2 - Hidradenitis suppurativa SNOMED: 35892368 (4) Microcytic anemia ICD Codes: D50.9 - Iron deficiency anemia, unspecified SNOMED: 033823464 (5) Constipation ICD Codes: K59.00 - Constipation, unspecified SNOMED: 10552817 (6) Headache ICD Codes: R51 - Headache SNOMED: 81599804 (7) Infection due to Enterobacter aerogenes ICD Codes: A49.8 - Other bacterial infections of unspecified site SNOMED: 80845125, 551973614 (8) Pseudomonas urinary tract infection ICD Codes: N39.0 - Urinary tract infection, site not specified; B96.5 - Pseudomonas (aeruginosa) (mallei) (pseudomallei) as the cause of diseases classified elsewhere SNOMED: 691803029, [id number] Assessment/Plan IV abx, Cefazolin-->Vanc+Ceftriaxone-->Ceftriaxone (DC Vanc since no MRSA)--> Ceftaroline f/u blood cx 2/2 GPC in clusters and GNR: coag neg staph and diptheroids-- likely skin genesis contaminants u cx with GNR, Enterobacter and Pseudomonas] moe d/c'd yesterday repeat bl cx ntd x 2 c/s'd ID, appreciate recs Pain control H and H stable Supp care Wound care s/p Debridement of bilateral groin,thighs,lower abdomen, and vulva POD 10 s/p wound closure; s/p dressing takedown today increased bowel regimen; now having regular bms tylenol for JEROME and f/c IC heparin dvt ppx PT ambulate Time spent on case: 45 minutes with 28 mins dedicated to care coordination and counseling Subjective Date patient seen: May 31, 2016 Time patient seen: 19:00 Allergies: Coded Allergies: Dust (Verified Allergy, Mild, 12/30/15) SHELLFISH DERIVED (Unverified Allergy, Mild, 12/30/15) STRAWBERRY (Verified Allergy, Mild, 12/30/15) MARCIN INHIBITORS (Unverified Allergy, Unknown, 12/29/15) Uncoded Allergies: muñoz (Allergy, Mild, 12/30/15) shellfish (Allergy, Mild, 12/30/15) Subjective subjective f/c resolved; +BM; ambulating; took a shower Objective Last 24 Hour Vital Signs Date Time Temp Pulse Resp B/P Pulse Ox O2 Delivery O2 Flow Rate FiO2 05/31/16 16:00 97.7 82 18 131/69 100 Room Air 05/31/16 11:50 97.5 77 20 131/82 97 Room Air 05/31/16 08:00 18 05/31/16 07:38 97.9 82 20 116/74 100 Room Air 05/31/16 04:00 18 05/31/16 04:00 97.9 84 18 127/73 99 Room Air 05/31/16 00:00 20 05/31/16 00:00 97.5 98 20 131/74 98 Room Air 05/30/16 20:32 97.9 87 19 109/58 96 Room Air 05/30/16 20:00 18 Intake and Output 05/30/16 05/31/16 19:00 07:00 Intake Total 400 ml 360 ml Output Total 1815 ml Balance -1415 ml 360 ml Intake Oral 400 ml 360 ml Output Urine Total 1800 ml Drainage Total 15 ml # Voids 2 # Bowel Movements 2 Height (Feet): 5 Height (Inches): 8.00 Weight (Pounds): 292 Objective General Appearance: WD/WN, in mild distress EENT: PERRL/EOMI, normal ENT inspection Neck: non-tender, normal alignment Cardiovascular: normal peripheral pulses, normal rate Respiratory/Chest: chest wall non-tender, lungs clear Abdomen: normal bowel sounds, non tender Extremities: normal range of motion Edema: no edema noted Arm (L), no edema noted Arm (R), no edema noted Leg (L), no edema noted Leg (R), no edema noted Pedal (L), no edema noted Pedal (R), no edema noted 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 May 31, 2016 19:01
[2016-05-31 20:00] VITALS: BP 124/70
[2016-06-01] VITALS: BP 146/76
[2016-06-01 04:00] VITALS: BP 128/77
[2016-06-01 07:55] VITALS: BP 135/84
[2016-06-01] MEDS: Pericolace tab ORAL SCH (08:26)
[2016-06-01] MEDS: Milk of Magnesia 30ml Ud ORAL SCH (08:26)
[2016-06-01] MEDS: Ocean Nasal Spray 45ml NASAL SCH (08:26)
[2016-06-01] MEDS: Heparin 5000 units/ml inj SUBQ SCH (08:33)
[2016-06-01] MEDS ORDERED: NORCO 5-325 TA1 EACH ORAL (10:18)
[2016-06-01] MEDS ORDERED: CIPRO500 MG PO (10:18)
--- NOTE | 2016-06-01 10:51 | Discharge Summary ---
Discharge Summary Hospital Course Date of Admission May 19, 2016 at 20:22 Date of Discharge 06/01/16 Admitting Diagnosis hidrandenitis Reason for Hospitalization: as above HPI Maureen Burns is a 41 year old female who was admitted on May 19, 2016 at 20: 22 for Hidrandenitis Consultations [facility] Course Pt received IV abx, Cefazolin-->Vanc+Ceftriaxone-->Ceftriaxone (DC Vanc since no MRSA)-->Ceftaroline f/u blood cx 2/2 GPC in clusters and GNR: coag neg staph and diptheroids-- likely skin genesis contaminants u cx with GNR, Enterobacter and Pseudomonas] moe d/c'd yesterday repeat bl cx ntd x 2 c/s'd ID, appreciate recs Pain control H and H stable Supp care Wound care s/p Debridement of bilateral groin,thighs,lower abdomen, and vulva POD 11 s/p wound closure; s/p dressing takedown increased bowel regimen; now having regular bms tylenol for JEROME and f/c IC heparin dvt ppx PT ambulate Discharge Medications Continued Medications: Ciprofloxacin* (Cipro*) 500 Mg Tablet 500 MG PO Q12HR, #8 TAB Hydrocodone Bit/Acetaminophen 5-325* (Tiro 5-325*) 1 Each Tablet 1 TAB ORAL Q6H PRN for For Pain, #15 TAB 0 Refills Discontinued Medications: Amoxicillin/Potassium Clav 500-125 Mg Tab* (Amox Tr-K Clv 500-125 Mg Tab*) 1 Each Tablet 1 TAB ORAL EVERY 12 HOURS, TAB Furosemide* (Lasix*) 40 Mg Tablet 40 MG ORAL DAILY, TAB Levonorgestrel-Eth Estradiol (Aviane) 1 Each Tablet 1 EACH PO, TAB Discharge Condition Upon Discharge: stable Discharge Disposition Patient was discharged to Home (01) Discharge Diagnoses: (1) Hidradenitis (2) Constipation (3) Abscess (4) Inguinal abscess (5) Headache (6) Infection due to Enterobacter aerogenes (7) Pseudomonas urinary tract infection (8) Microcytic anemia Eloy Peguero M.D. Jun 01, 2016 10:51
[2016-06-01 12:36] VITALS: BP 134/78
== END 2016-06-01 14:30 | disposition home or self-care (01) | DRG 577 ==
LOC: EMR 19:46 → 3E 20:22 → EDBEDREQ 22:43 → 3E 05-20 02:44
PROC: 0JBM0ZZ Excision of Left Upper Leg Subcutaneous Tissue and Fascia, Open Approach (ICD-10-PCS; principal; 2016-05-20 11:30)
PROC: 0JXM0ZC Transfer Left Upper Leg Subcutaneous Tissue and Fascia with Skin, Subcutaneous Tissue and Fascia, Open Approach (ICD-10-PCS; principal; 2016-05-20 11:30)
PROC: 0JBL0ZZ Excision of Right Upper Leg Subcutaneous Tissue and Fascia, Open Approach (ICD-10-PCS; principal; 2016-05-20 11:30)
PROC: 0JXL0ZC Transfer Right Upper Leg Subcutaneous Tissue and Fascia with Skin, Subcutaneous Tissue and Fascia, Open Approach (ICD-10-PCS; principal; 2016-05-20 11:30)
PROC: B518ZZA Fluoroscopy of Superior Vena Cava, Guidance (ICD-10-PCS; principal; 2016-05-20 11:30)
PROC: 0JB80ZZ Excision of Abdomen Subcutaneous Tissue and Fascia, Open Approach (ICD-10-PCS; principal; 2016-05-20 11:30)
PROC: 0UBM0ZZ Excision of Vulva, Open Approach (ICD-10-PCS; principal; 2016-05-20 11:30)
PROC: 02HV33Z Insertion of Infusion Device into Superior Vena Cava, Percutaneous Approach (ICD-10-PCS; principal; 2016-05-20 11:30)
PROC: 0JXL0ZC Transfer Right Upper Leg Subcutaneous Tissue and Fascia with Skin, Subcutaneous Tissue and Fascia, Open Approach (ICD-10-PCS; 2016-05-25)
PROC: 0JXM0ZC Transfer Left Upper Leg Subcutaneous Tissue and Fascia with Skin, Subcutaneous Tissue and Fascia, Open Approach (ICD-10-PCS; 2016-05-25)
PROC: 0JXC0ZC Transfer Pelvic Region Subcutaneous Tissue and Fascia with Skin, Subcutaneous Tissue and Fascia, Open Approach (ICD-10-PCS; 2016-05-25)
PROC: 0JBM0ZZ Excision of Left Upper Leg Subcutaneous Tissue and Fascia, Open Approach (ICD-10-PCS; 2016-05-25)
PROC: 0JR807Z Replacement of Abdomen Subcutaneous Tissue and Fascia with Autologous Tissue Substitute, Open Approach (ICD-10-PCS; 2016-05-25)
DX: L73.2 Hidradenitis suppurativa (principal); N76.4 Abscess of vulva; N39.0 Urinary tract infection, site not specified; L02.214 Cutaneous abscess of groin; L02.416 Cutaneous abscess of left lower limb; L02.415 Cutaneous abscess of right lower limb; L02.211 Cutaneous abscess of abdominal wall; R51 Headache; B96.5 Pseudomonas (aeruginosa) (mallei) (pseudomallei) as the cause of diseases classified elsewhere; D64.9 Anemia, unspecified; K59.00 Constipation, unspecified
CPT/HCPCS: 36415; 36569; 71010; 76937; 80048; 80053; 80202; 81001; 81003; 85025; 85610; 85730; 86850; 86900; 86901; 87040; 87086; 87181; 93005; 94003; 94150; C9399; J2180; J2250; J2405; J2710